=== PATIENT | female | born 1960 | race Caucasian/White ===

== ENCOUNTER 2023-10-21 08:07 | Outpatient (OUT) | payer BC, SELFPAY ==
--- NOTE | 2023-10-21 08:20 | XR_ITS ---
[address] [address] Patient Name: VERNELL SMITH MRN: [id number] date: 1960 Sex: F Assigned Patient Location: [facility] Current Patient Location: [facility] Accession/Order Number: [id number] Exam Date: 10/21/2023 08:32 Report Date: 10/21/2023 08:44 At the request of: DEACON HUMPHREYS Procedure: XR DEXA axial skeleton EXAMINATION: XR DEXA axial skeleton HISTORY: s/p compression fxs spine, osteopenia COMPARISON: DEXA bone densitometry 10/19/2021 TECHNIQUE: Dual-energy X-ray absorptiometry (DXA) was performed. FINDINGS: SPINE ANALYSIS: Average bone mineral density is 0.959 g/cm2. T-score (standard deviation relative to young adult mean): -1.8 . +3.1% change since prior study. HIP ANALYSIS: Lowest bone mineral density is within the right femoral neck, 0.789 g/cm2. T-score (standard deviation relative to young adult mean): -1.8 . +4.1% change since prior study. XR/XR DEXA axial skeleton IMPRESSION: World Abel Organization Classification: Osteopenia - Moderate Fracture Risk Electronically authenticated by: MERLINE MELENDREZ Date: 10/21/2023 08:44
== END 2023-10-21 08:08 | disposition home or self-care (01) ==
LOC: RAD 08:11
PROVIDERS: PCP Family Medicine; Visit Provider Family Medicine
DX: M85.80 Other specified disorders of bone density and structure, unspecified site (principal); M48.50XA Collapsed vertebra, not elsewhere classified, site unspecified, initial encounter for fracture
CPT/HCPCS: 77080

== ENCOUNTER 2024-11-26 13:47 | Outpatient (OUT) | payer OTHER, SELFPAY ==
--- NOTE | 2024-11-26 13:51 | MM_ITS ---
Patient Name: VERNELL SMITH MR#: [id number] : 1960 Exam Date: 11/26/2024 Ordering Doctor: MOLINA ROBLEDO . RADIOLOGY REPORT PROCEDURE: MM TOMOSYNTHESIS SCREENING BI COMPARISON: MG MAMM SCREEN JW W CAD, 01/15/2020. MG MAMM SCREEN JW W CAD, 04/07/2017. MG MAMM JW SCRN W CAD DIG, 02/20/2015. MAMMO JW SCREEN, 11/13/2008. INDICATIONS: Screening Calculator Name NCI Breast Cancer Risk Assessment Tool 5 Year Breast Cancer Risk 2.90% Lifetime Breast Cancer Risk 10.70% Personal Breast Cancer No Personal Ovarian Cancer No Treatments None Family Cancers Mother with breast cancer at age ~38; Mother with lung cancer at age ~72; Aunt-maternal with lung cancer at age ~70; Aunt-paternal with uterine cancer at age ~55. LOCATION: [facility] BREAST COMPOSITION: There are scattered areas of fibroglandular density. FINDINGS: DIAGNOSTIC CATEGORY 2--BENIGN FINDING: RIGHT BREAST: No significant suspicious finding. Scattered benign-appearing calcifications are present. Scattered benign-appearing nodules are present. No significant change has occurred. LEFT BREAST: No significant suspicious finding. Scattered benign-appearing calcifications are present. No significant change has occurred. RECOMMENDATIONS: ROUTINE MAMMOGRAM AND CLINICAL EVALUATION IN 12 MONTHS. PLEASE NOTE: A NORMAL MAMMOGRAM DOES NOT EXCLUDE THE POSSIBILITY OF BREAST CANCER. A CLINICALLY SUSPICIOUS PALPABLE LUMP SHOULD BE BIOPSIED. Dictated by: Pedrito Villafana M.D. on 11/26/2024 at 16:13 Approved by: Pedrito Villafana M.D. on 11/26/2024 at 16:16
== END 2024-11-26 13:48 | disposition home or self-care (01) ==
LOC: MAMMO 13:47
PROVIDERS: PCP Family Medicine; Visit Provider Nurse Practitioner
DX: Z12.31 Encounter for screening mammogram for malignant neoplasm of breast (principal); Z80.3 Family history of malignant neoplasm of breast; Z80.1 Family history of malignant neoplasm of trachea, bronchus and lung; Z80.8 Family history of malignant neoplasm of other organs or systems
CPT/HCPCS: 77063; 77067

== ENCOUNTER 2025-06-08 08:42 | Outpatient (OUT) | payer OTHER, SELFPAY ==
--- OUTSIDE RECORDS SUMMARY | 2025-06-08 08:50 | XMS_ITS | Encounter Summary ---
Author Organization [facility] Address [facility] [place] [address] Care Team Providers Care Lap Checker Name Role Phone Miquel Davidson MD Unavailable [phone] Miquel Davidson MD Primary Care Provider [phone] Source Comments In the event this information is protected by the Federal Confidentiality of Alcohol and Drug AbusePatient Records regulations: The Federal rules restrict any use of the information to criminally investigate or prosecute any alcohol or drug abuse patient.[facility] Encounter Details Date Type Department Care Team (Late st Contact Info) Description 02/27/2024 [place] [address] Provider, [facility] Medicare Coverage of Physical Exams Social History Tobacco Use Types Packs/Day Years Used Date Smoking Tobacco: Some Days Cigarettes Passive Smoke Exposure: Current Smokeless Tobacco: Never Alcohol Use Standard Drinks/Week Comments Not Currently 0 (1 standard drink = 0.6 oz pur e alcohol) 1-2 a month PHQ-2 Answer Date Recorded PHQ-2 score 2 10/18/2023 Area Deprivation Index Answer Date Zachariah rded National Score (1-100), lower number is lower ri sk 74 01/26/2023 State Score (1-10), lower number is lower risk N ot on file 01/26/2023 Data from: https://www.neighborhoodatlas.medicine.[facility]/. Last address used for calculation [address] 01/26/2023 Comments No Sex and Gender Information Value Date Recorded Sex Assigned at Not on file Legal Sex Female 12:27 PM EDT Gender Identity Not on file Sexual Orientation Not on file documented as of this encounter Plan of Treatment Upcoming Encounters Date Type Department Care Team (Late st Contact Info) Description 10/10/2025 2:00 PM EST Office Visit [facility] [address] [place] [address] 1 year follow up 10/10/2025 2:20 PM EST Visit (SP) Office Hematology/Oncology [address] [place] [address] Octaviano Walker MD [address] [place] [address] 1 year follow up documented as of this encounter Visit Diagnoses Not on filedocumented in this encounter Care Teams Lap Checker Relationship Specialty Start Date End Date Miquel Davidson MD [address] [place] [address] PCP - General Family Medicine 04/08/23 Miquel Davidson MD [address] [place] [address] Referring Family Medicine 04/04/23 documented as of this encounter
--- OUTSIDE RECORDS SUMMARY | 2025-06-08 08:50 | XMS_ITS | Clinical Summary ---
Author Organization [facility] Address [address] [place] [address] Care Team Providers Care Veterinarian Helper Name Role Phone Miquel Davidson MD Unavailable [phone] Miquel Davidson MD Primary Care Provider [phone] Allergies No known active allergies Medications cyclobenzaprine (FLEXERIL) 5 mg tablet Take 5 mg by mouth once daily. 1 Active albuterol HFA (PROVENTIL HFA, VENTOLIN HFA) 90 mcg/actuation inhaler Inhale 2 Puffs as instructed every 4 hours as needed. 3 Active rOPINIRole (REQUIP) 0.25 mg tablet Take 0.25 mg by mouth three times a day. 4 Active ALBUTEROL INHALATION Inhale as instructed as needed. Active Active Problems No known active problems Immunizations Immunization Administration Dates Next Due COVID-19 original vaccine, a ge 12+ yr, monovalent (Doximity - PURPLE TOP) 02/10/2021,01/19/2021 influenza (LAIV) vaccine, na felipe, unspecified formulation 10/19/2022,08/17/2021,09/28/2019,2018,08/10/2018,08/19/2016 zoster (RZV) vaccine, recomb inant (SHINGRIX) 10/19/2022 Family History Medical History Relation Comments Skin Cancer Father Breast Cancer Mother Diabetes Sister Skin Cancer Sister Relation Status Comments Father Mother Sister Social History Tobacco Use Types Packs/Day Years Used Date Smoking Tobacco: Some Days Cigarettes Passive Smoke Exposure: Current Smokeless Tobacco: Never Tobacco Cessation:Ready to Q uit: Not Asked; Counseling Given: Not Answered Alcohol Use Standard Drinks/Week Comments Not Currently 0 (1 standard drink = 0.6 oz pur e alcohol) 1-2 a month PHQ-2 Answer Date Recorded PHQ-2 score 2 10/17/2024 Area Deprivation Index Answer Date Zachariah rded National Score (1-100), lower number is lower ri sk 74 01/26/2023 State Score (1-10), lower number is lower risk N ot on file 01/26/2023 Data from: https://www.neighborhoodatlas.[facility]/. Last address used for calculation [address] 01/26/2023 Comments No Sex and Gender Information Value Date Recorded Sex Assigned at Not on file Legal Sex Female 12:27 PM EDT Gender Identity Not on file Sexual Orientation Not on file Last Filed Vital Signs Vital Sign Reading Time Taken Comments Blood Pressure 133/82 10/18/2024 2:18 PM EST Pulse 49 10/18/2024 2:18 PM EST Temperature 36.3 C (97.3 F) 10/18/2024 2:18 PM EST Respiratory Rate 16 10/18/2024 2:18 PM EST Oxygen Saturation 97% 10/18/2024 2:18 PM EST Inhaled Oxygen Concentration - - Weight 68.8 kg (151 lb 9.6 oz) 10/18/2024 2:18 P M EST Height 162.6 cm (5' 4.02 ) 10/18/2024 2:18 PM ES T Body Mass Index 26.01 10/18/2024 2:18 PM EST Plan of Treatment Upcoming Encounters Date Type Department Care Team (Late st Contact Info) Description 10/10/2025 2:00 PM EST Office Visit [facility] [address] [place] [address] [place] [address] 1 year follow up 10/10/2025 2:20 PM EST Visit (SP) Office Hematology/Oncology [address] [facility] [place] [address] Octaviano Walker MD [address] [place] [address] 1 year follow up Health Maintenance Due Date Last Done Comments Anxiety Screening 1977 Depression Screening 1977 Hepatitis C Screening 1977 DTaP,Tdap,Td Vaccine (1 - Tdap) [address] Colonography 02/27/2004 Cologuard (FIT-DNA) 02/27/2004 Colonoscopy 02/27/2004 Colorectal Cancer Screening 02/27/2004 Fecal Occult Blood 02/27/2004 Lipid Screening 02/27/2004 Sigmoidoscopy 02/27/2004 Bone Density Screening 02/27/2024 Advance Directive Discussion 10/31/2024 Influenza Vaccine (#1) 2025 , 10/19/2022, 08/17/2021, Additional history exists Diabetes Screening 10/18/2027 10/18/2024, 1 12/21/2022, 07/21/2023, Additional history exists RSV Vaccine (1 - 1-dose 75+ series) 2034 Pneumococcal Vaccine: 50+ Completed 08/02/2023 Shingrix Vaccine Completed 08/02/2023, 10/19/2022 Procedures Procedure Name Priority Date/Time Associated Diagnosis Comments COMPREHENSIVE METABOLIC PANEL Routine 10/18/2024 2:02 PM EST Splenomegaly Thrombocytopenia (HCC) from Last 3 Months or Most Recently Relevant to Health Maintenance Results * (ABNORMAL) COMP METABOLIC PANEL (10/18/2024 2:02 PM EST) Protein, Total 6.7 6.3 - 8.0 g/dL 10/18/2024 2:27 PM EST [facility] Albumin 4.5 3.9 - 4.9 g/dL 10/18/2024 2:27 PM EST [facility] Calcium, Total 9.5 8.5 - 10.2 mg/dL 10/18/2024 2:27 PM EST [facility] Bilirubin, Total 0.9 0.2 - 1.3 mg/dL 10/18/2024 2:27 PM EST [facility] Alkaline Phosphatase 63 34 - 123 U/L 10/18/2024 2:27 PM [facility] AST 19 13 - 35 U/L 10/18/2024 2:27 PM [facility] ALT 11 7 - 38 U/L 10/18/2024 2:27 PM [facility] Glucose 78 74 - 99 mg/dL 10/18/2024 2:27 PM [facility] Comment: The [place] Diabetes Association (ADA) provides guidance for cutoff values for fasting glucose and random glucose. The ADA defines fasting as no caloric intake for at least 8 hours. Fasting plasma glucose results between 100 to 125 mg/dL indicate increased risk for diabetes (prediabetes). Fasting plasma glucose results greater than or equal to 126 mg/dL meet the criteria for diagnosis of diabetes. In the absence of unequivocal hyperglycemia, results should be confirmed by repeat testing. In a patient with classic symptoms of hyperglycemia or hyperglycemic crisis, random plasma glucose results greater than or equal to 200 mg/dL meet the criteria for diagnosis of diabetes. Reference: Standards of Medical Care in Diabetes 2016, [place] Diabetes Association. Diabetes Care. 2016.39(Suppl 1). BUN 14 7 - 21 mg/dL 10/18/2024 2:27 PM [facility] Creatinine 0.75 0.58 - 0.96 mg/dL 10/18/2024 2:27 PM [facility] Sodium 141 136 - 144 mmol/L 10/18/2024 2:27 PM [facility] Potassium 5.1 3.7 - 5.1 mmol/L 10/18/2024 2:27 PM [facility] Chloride 106 98 - 107 mmol/L 10/18/2024 2:27 PM [facility] CO2 28 22 - 30 mmol/L 10/18/2024 2:27 PM [facility] Anion Gap 7(L) 8 - 15 mmol/L 10/18/2024 2:27 PM [facility] Estimated Glomerular Filtration Rate 88 >=60 mL/min/1.7 3m 10/18/2024 2:27 PM [facility] Comment:Estimated Glomerular Filtration Rate (eGFR) is calculated using the 2020 CKD-EPI creatinine equation. This equation utilizes serum creatinine, sex, and age as parameters. The creatinine assay has traceable calibration to isotope dilution- mass spectrometry. Refer to KDIGO guidelines for clinical interpretation. In patients with unstable renal function, e.g. those with acute kidney injury, the eGFR may not accurately reflect actual GFR. Blood BLOOD SPECIMEN / Unknown Venipuncture / Unknown 10/18/2024 2:02 PM EST 10/18/2024 2:02 PM EST us Octaviano Walker MD LABORATORY Final Result [facility] [address] [place] [address] from Last 3 Months or Most Recently Relevant to Health Maintenance Insurance [employer] Care Teams Veterinarian Helper Relationship Specialty Start Date End Date Miquel Davidson MD [address] [place] [address] PCP - General Family Medicine 04/08/23 Miquel Davidson MD [address] [place], [place] [id number] Referring Family Medicine 04/04/23
--- OUTSIDE RECORDS SUMMARY | 2025-06-08 08:50 | XMS_ITS | Encounter Summary ---
Author Organization [facility] Address [facility] [place] [address] Care Team Providers Care Immigration Law Specialist Name Role Phone Miquel Davidson MD Unavailable [phone] Miquel Davidson MD Primary Care Provider [phone] Source Comments In the event this information is protected by the Federal Confidentiality of Alcohol and Drug AbusePatient Records regulations: The Federal rules restrict any use of the information to criminally investigate or prosecute any alcohol or drug abuse patient.[facility] Encounter Details Date Type Department Care Team (Late st Contact Info) Description 02/18/2023 [place] [address] Provider, [facility] Actionable Imaging Result Notification Patient Outreach Social History Tobacco Use Types Packs/Day Years Used Date Smoking Tobacco: Some Days Cigarettes Smokeless Tobacco: Never Alcohol Use Standard Drinks/Week Comments Not Currently 0 (1 standard drink = 0.6 oz pur e alcohol) PHQ-2 Answer Date Recorded PHQ-2 score 2 02/16/2023 Area Deprivation Index Answer Date Zachariah rded National Score (1-100), lower number is lower ri sk 74 01/26/2023 State Score (1-10), lower number is lower risk N ot on file 01/26/2023 Data from: https://www.neighborhoodatlas.[facility]/. Last address used for calculation [address] 01/26/2023 Comments Unknown Sex and Gender Information Value Date Recorded Sex Assigned at Not on file Legal Sex Female 12:27 PM EDT Gender Identity Not on file Sexual Orientation Not on file documented as of this encounter Plan of Treatment Upcoming Encounters Date Type Department Care Team (Late st Contact Info) Description 10/10/2025 2:00 PM EST Office Visit [facility] [address] [place] [address] [place] [address] 1 year follow up 10/10/2025 2:20 PM EST Visit (SP) Office Hematology/Oncology [address] [place] [address] Octaviano Walker MD [address] [place] [address] 1 year follow up documented as of this encounter Visit Diagnoses Not on filedocumented in this encounter Care Teams Immigration Law Specialist Relationship Specialty Start Date End Date Miquel Davidson MD [address] [place] [address] PCP - General Family Medicine 04/08/23 Miquel Davidson MD [address] [place] [address] Referring Family Medicine 04/04/23 documented as of this encounter
--- OUTSIDE RECORDS SUMMARY | 2025-06-08 08:50 | XMS_ITS | CCD ---
Author Organization [facility] Care Team Providers Care Library Serials Assistant Name Role Phone ARGELIA, DR ZAIN Siddiqui Admitting Unavailable STOUT, DR ZAIN Siddiqui Attending Unavailable STOUT, DR ZAIN Siddiqui Consulting Unavailable STOUT, DR ZAIN Siddiqui Primary Care Unavailable STOUT, DR ZAIN Siddiqui Admitting Unavailable STOUT, DR ZAIN Siddiqui Attending Unavailable STOUT, DR ZAIN Siddiqui Consulting Unavailable STOUT, DR ZAIN Siddiqui Primary Care Unavailable STOUT, DR ZAIN Siddiqui Admitting Unavailable STOUT, DR ZAIN Siddiqui Attending Unavailable STOUT, DR ZAIN Siddiqui Consulting Unavailable STOUT, DR ZAIN Siddiqui Primary Care Unavailable BRYCE GARSIA Consulting Unavailable STOUT, DR ZAIN Siddiqui Primary Care Unavailable STOUT, DR ZANI Siddiqui Admitting Unavailable STOUT, DR ZAIN Siddiqui Attending Unavailable STOUT, DR ZAIN Siddiqui Consulting Unavailable ZIEBER, DR MERLINE Orozco Consulting Unavailable Unavailable Primary Care Provider UnavailDeacon Young MD Unavailable Deacon Humphreys MD Primary Care Provider Romero Anna Unavailable Romero Anna Attending Unavailable Romero Anna Admitting Unavailable Deacon Humphreys Primary Care Unavailable Kajal Blackmon Unavailable Unavailable Primary Care Provider UnavailDeacon Young Primary Care Physician [phone] Jasmin Cobian Attending Unavailable Deacon Humphreys Attending Unavailable Deacon Humphreys Attending Unavailable Deacon Humphreys Admitting Unavailable Deacon Humphreys Attending Unavailable Deacon Humphreys Attending Unavailable Deacon Humphreys Attending Unavailable Deacon Humphreys MD Primary Care Provider [phone] OCTAVIANO KRUEGER Referring Unavailable OCTAVIANO KRUEGER Attending Unavailable DEACON HUMPHREYS Primary Care Unavailable DEACON HUMPHREYS Primary Care Unavailable Deacon Humphreys Admitting Unavailable Deacon Humphreys Attending Unavailable Deacon Humphreys Referring Unavailable Deacon Humphreys Admitting Unavailable Deacon Humphreys Attending Unavailable Jasmin Cobian Admitting Unavailable Jasmin Cobian Attending Unavailable Deacon Humphreys Admitting Unavailable Deacon Humphreys Attending Unavailable Deacon Humphreys Admitting Unavailable Deacon Humphreys Attending Unavailable MEI, INSPECTOR BALANCE TRUING TOMEKA A Attending Unavailapril HURLEY, STEPHANI TOMEKA A Attending Unavailabl e Deacon Humphreys Attending Unavailable Abhyankar, Octaviano Admitting Unavailable Abhyankar, Octaviano Attending Unavailable Abhyankar, Octaviano Referring Unavailable Deacon Humphreys Attending Unavailable Deacon Humphreys Attending Unavailable Medications Current Medications Medication Drug Class(es) Dates Sig (Normalized) Sig (Original) [id number] 200 actuat albuterol 0.09 mg/actuat metered dose inhaler (15 sources) beta2-Adrenergic Agonist Start: 12-24-2022 take 2 puff(s) by inhalation every four hours as needed albuterol HFA (PROVENTIL HFA, VENTOLIN HFA) 90 mcg/actuation inhaler Inhale 2 Puffs as instructed every 4 hours as needed. 12/24/2022 Active ALBUTEROL INHALA TION Inhale as instructed as needed. Active take 1 puff(s) by in halation every four hours as needed Albuterol Sulfate HFA 108 (90 Base) MCG/ACT 1 puff as needed Inhalation every 4 hrs Active Comment on above: Inhale 2 Puffs as in structed every 4 hours as needed. Albuterol (Eqv-ProAir HFA) 90 mcg/inh inhalation aerosol (5 sources) Start: 03-23-20 take 2 puff(s) by inhalation every four hours as needed Albuterol (Eqv-ProAir HFA) 90 mcg/inh inhalation aerosol 2 puff(s), Inhalation, q4hr, Refill(s) 0, as needed Start Date: 03/23/23 Status: Ordered amoxicillin 500 mg oral capsule (1 source) Penicillin-class Antibacterial Start: 07-04-20 take 2 capsules by mouth twice daily Amoxicillin 500 MG 2 caps Orally Twice a day for 7 days Jul, Active atorvastatin 20 mg oral tablet (15 sources) HMG-CoA Reductase Inhibitor Start: 06-23-20 End: 10-18-20 take 1 tablet by mouth once daily at bedtime atorvastatin 20 mg Tab See Instructions, TAKE ONE TABLET BY MOUTH ONCE DAILY AT BEDTIME, # 90 EA, Refills(s) 0, Pharmacy: [facility], 162.6, cm, 11/21/23 7:35:00 EST, Height/Length Dosing, 73.4, kg, 11/21/23 7:35:00 EST, Weight Dosing Start Date: 03/19/24 Status: Ordered Comment on above: Take 20 mg by mouth once daily. rOPINIRole 0.25 mg oral tablet (4 sources) Nonergot Dopamine Agonist Start: 10-01-20 take 1 tablet by mouth three times daily rOPINIRole (REQUIP) 0.25 mg tablet Take 0.25 mg by mouth three times a day. 10/01/2024 Active Start: 10-01-2024 take 1 tablet by shahnaz th once daily at bedtime ropinirole 0.25 mg Tab 0.25 mg = 1 tab(s), Oral, Daily, 1 to 3 hours before bedtime, # 90 tab(s), Refills(s) 0, Pharmacy: [facility], 162.5, cm, 10/01/24 11:55:00 EST, Height/Length Dosing, 68.9, kg, 10/01/24 11:55:00 EST, Weight Dosing Start Date: 10/01/24 Status: Ordered Completed/Discontinued Medications Medication Drug Class(es) Dates Sig (Normalized) Sig (Original) alendronic acid 35 mg oral tablet (3 sources) Bisphosphonate Start: 11-21-2023 take 6-8 [oz_av] by mouth once daily alendronate 35 mg Tab 35 mg = 1 tab(s), Oral, q7day, with 6-8 oz plain water, at least 30 minutes before first food, beverage, or medication of the day, # 12 tab(s), Refills(s) 0, Pharmacy: [facility], 162.6, cm, 11/21/23 7:35:00 EST, Height/Length Dosing, 73.4, kg, 11/21/23 7:35:00 EST, Weight Dosing Start Date: 11/21/23 Status: Ordered cyclobenzaprine hydrochloride 5 mg oral tablet (17 sources) Muscle Relaxant Start: 11-21-2023 take 1 tablet by mouth three times daily as needed cyclobenzaprine 5 mg Tab 5 mg = 1 tab(s), Oral, TID, PRN Spasm, TAKE ONE TABLET BY MOUTH THREE TIMES A DAY FOR 30 DAYS, # 90 tab(s), Refills(s) 0, Pharmacy: [facility], 162.6, cm, 11/21/23 7:35:00 EST, Height/Length Dosing, 73.4, kg, 11/21/23 7:35:00 EST, Weight Dosing Start Date: 11/21/23 Status: Ordered Start: 09-01-2021 take 1 tablet by shahnaz th once daily cyclobenzaprine (FLEXERIL) 5 mg tablet Take 5 mg by mouth once daily. 09/01/2021 Active Comment on above: Take 5 mg by mouth o nce daily. Problems Active Problems Problem Classification Problem Date Documented Da te Episodic/Chronic Disorders of lipid metabolism (11 sources) Pure hypercholesterolemia, unspecified; Translations: [Hypercholesterolemia] Onset: 3 06-23-2021 Chronic Diverticulosis and diverticulitis (7 sources) Diverticulosis of sigmoid colon; Translations: [Sigmoid diverticulosis] 03-22-2023 Chronic Esophageal disorders (5 sources) Gastroesophageal reflux disease 03-22-2023 Chronic Other and unspecified benign neoplasm (2 sources) History of polyp of colon; Translations: [Personal history of colonic polyps] Episodic Other and unspecified benign neoplasm (2 sources) Benign polyp of colon; Translations: [Colon polyp, hyperplastic] Episodic Other bone disease and musculoskeletal deformities (5 sources) Osteopenia 03-22-2023 Episodic Other connective tissue disease (5 sources) Cramp in lower limb 09-04-2024 Episodic Other gastrointestinal disorders (5 sources) Irritable bowel syndrome 03-22-2023 Chronic Other gastrointestinal disorders (3 sources) Splenomegaly; Translations: [Splenomegaly, not elsewhere classified] Episodic Other nutritional; endocrine; and metabolic disorders (4 sources) Metabolic syndrome; Translations: [METABOLIC SYNDROME] Onset: 3 Chronic Other nutritional; endocrine; and metabolic disorders (5 sources) Metabolic syndrome X 03-22-2023 Chronic Other upper respiratory infections (1 source) Acute upper respiratory infection, unspecified Episodic Otitis media and related conditions (1 source) Otitis media, unspecified, right ear Episodic Pathological fracture (1 source) Personal history of (healed) other pathological fracture; Translations: [PERS HX HEALED OTH PATHOLOGICAL FX] Onset: 3 Episodic Spondylosis; intervertebral disc disorders; other back problems (8 sources) Lumbar radiculopathy; Translations: [Radiculopathy, lumbar region] Episodic Substance-related disorders (5 sources) Smoker 06-05-2021 Chronic Comment on above: Added secondary to d ocumentation in Social History. Unclassified (1 source) LOW BACK PAIN, UNSPECIFIED; Translations: [LOW BACK PAIN, UNSPECIFIED] Onset: 3 Unclassified (3 sources) COUGH, UNSPECIFIED; Translations: [COUGH, UNSPECIFIED] Onset: 2 Unclassified (1 source) Infectious mononucleosis, unspecified without complication; Translations: [Infectious mononucleosis, unspecified without complication] Onset: 3 Unclassified (2 sources) Cancer cervix screening status 09-18-2024 Unclassified (4 sources) Patient encounter status 09-18-2024 Viral infection (3 sources) Gareth-Gottlieb virus disease; Translations: [Infectious mononucleosis, unspecified without complication] Episodic Viral infection (5 sources) Disease caused by 2019-nCoV 11-21-2023 Past or Other Problems Problem Classification Problem Date Documented Da te Episodic/Chronic Other lower respiratory disease (1 source) Shortness of breath; Translations: [SHORTNESS OF BREATH] Onset: 04-22-2022 Episodic Other screening for suspected conditions (not mental disorders or infectious disease) (4 sources) Encounter for screening for malignant neoplasm of cervix; Translations: [ENC SCREENING MALIG NEOPLASM CERV] Onset: 11-25-2021 Episodic Unclassified (1 source) COUGH, UNSPECIFIED; Translations: [COUGH, UNSPECIFIED] Onset: 04-20-2022 Results Test Name Value Interpretation Reference Range Facility Ambulatory Visit Summaryon 0 05-23-2025 Ambulatory Visit Summary Ambulatory Visit Summary HARMONY CASILLAS :1960 Visit Date:05/23/2025 Ambulatory Visit Instructions Your Diagnosis Abscess of buttock, right BMI 24.0-24.9, adult Smoker Your Care Team Attending Physician - TOMEKA HURLEY CNP Primary Care Physician - Deacon Humphreys MD This Is Your Medications List albuterol (Albuterol (Eqv-ProAir HFA) 90 mcg/inh inhalation aerosol) cephalexin (Keflex 500 mg Cap) cyclobenzaprine (cyclobenzaprine 5 mg Tab) ropinirole (ropinirole 0.5 mg Tab) Procedures Performed Colonoscopy (2019). Discharge Vitals Temperature (Oral) 36.8 ???C Heart Rate (Peripheral) 88 Respiratory Rate 18 Blood Pressure 122/82 Height 162.5 cm Height 64 in Weight 65.9 kg Weight 145.284 lb BMI 24.96 What to do next Scheduled Follow-Up Appointments 2024 8:40 AM EDT With: TOMEKA HURLEY CNP Where: [address] [phone]- 2024 1:40 PM EDT With: Deacon Humphreys MD Where: [place] [id number] You Need to Schedule the Following Appointments Follow Up with TOMEKA HURLEY CNP, FAM When: Within 2 weeks Comments: Abscess of buttocks Where: [address] [place], [place] [phone] Business (1) Medications What How Much When Why Instructions New cephalexin (Keflex 500 mg Cap) 1 Capsules By Mouth 4 times a day Abscess of buttock, right Duration: 10 Days Pickup at [facility] Unchanged albuterol (Albuterol (Eqv-ProAir HFA) 90 mcg/ inh inhalation aerosol) 2 Puffs Inhalation Every 4 hours as needed Unchanged cyclobenzaprine (cyclobenzaprine 5 mg Tab) 1 Tablets By Mouth 3 times a day as needed for Spasm TAKE ONE TABLET BY MOUTH THREE TIMES A DAY FOR 30 DAYS Unchanged ropinirole (ropinirole 0.5 mg Tab) 1 Tablets By Mouth Every day 1 to 3 hours before bedtime Pharmacy Information [facility] [id number]: [address], [place] [phone] Allergies No Known Allergies Problems Ongoing - Any problem that you are currently receiving treatment for. Back pain BMI 24.0-24.9, adult Diverticulitis GERD (gastroesophageal reflux disease) Hyperlipidemia IBS (irritable bowel syndrome) Leg cramping Metabolic syndrome Osteopenia Smoker Well woman exam Patient Survey You may receive a survey via text or e-mail asking about your office visit. Please share your experience with us by completing your survey. We appreciate your feedback and thank you for choosing us for your care. Patient Portal You may access all of your results and other medical record information on our secure patient portal. If you are not signed up for this yet, please contact [employer] at [phone] to get signed up today. Language Information Language assistance services are available as needed. Normal [facility] Family Medicine Office/Clini c Noteon 05-23-2025 Family Medicine Office/Clinic Note Family Medicine Office/Clinic Note Chief Complaint Acute Visit The patient reports discomfort and a lump in the rectal area. HPI Staff Former Dr Stuart alanis. Presents today for acute visit. Has lump on buttocks, near rectum. Tender to touch. First noticed 2 wks ago. Last night discovered swelling of vaginal area as well. Denies difficulty using restroom. Has been having increased bowel movements, softer, but not diarrhea. Last PAP 09/18/24 I have reviewed and verified the staff HPI to be accurate for this encounter. History of Present Illness 65-year-old female presenting with discomfort in the rectal area and a lump near the perianal region. The discomfort began a couple of weeks ago, initially presenting as redness, which was confirmed by her daughter. The patient attempted self-treatment with Neosporin, bag balm, and witch aliya, but these interventions were ineffective. Upon further inspection during a shower, the patient noticed a lump near the rectal area, which was later identified as a tender abscess during the examination. The patient also reported swelling in the vaginal area, although no significant edema was observed during the examination. Review of Systems PHQ Score Initial Depression Screen Score: 0 SCORE - Dermatological: Reports discomfort and redness in the rectal area. - Genitourinary: Reports swelling in the vaginal area. Physical Exam Vitals & Measurements T: 36.8 ???C(Oral) HR: 88(Peripheral) RR: 18 BP: 122/82 SpO2: 99% HT: 64 in HT: 162.5 cm WT: 145.284 lb WT: 65.9 kg BMI: 24.96 General: alert, no acute distress Skin: warm, dryNoted a tender abscess in the perianal area. Head: no trauma, normocephalic Neck: Trachea midline, no adenopathy, no tenderness Eye: normal conjunctiva, sclera clear Cardiovascular: regular rate and rhythm, normal peripheral perfusion Respiratory: Lungs CTA, respirations non labored Genitourinary: No significant edema or swelling observed in the vaginal area. Extremities: no deformity, no trauma Neurological: oriented x 4, LOC appropriate for age speech normal Assessment/Plan 1. Abscess of buttock, right (L02.31: Cutaneous abscess of buttock) - Warm compresses recommended to facilitate drainage. - Prescribed Keflex (cephalexin) 500 mg four times daily for 10 days. - Follow-up appointment advised in two weeks to reassess the condition. Ordered: cephalexin, 500 mg = 1 cap(s), Oral, QID, X 10 day(s), # 40 cap(s), Refills(s) 0, Pharmacy: [facility], 162.5, cm, 05/23/25 7:42:00 EDT, Height/Length Dosing, 65.9, kg, 05/23/25 7:42:00 EDT, Weight Dosing 2. BMI 24.0-24.9, adult (Z68.24: Body mass index [BMI] 24.0-24.9, adult) BMI 24.96 3. Smoker (F17.200: Nicotine dependence, unspecified, uncomplicated) The standard range for ages 18 and older is >=18.5 and < 25 kg/m2. Your BMI today was above this range, this falls in the overweight to obese category and there are medical benefits to weight loss. We can offer counselling, referral, and/or medical support in addressing this problem. Your BMI and weight management will be followed at subsequent visits. Follow-up With When Contact Information TOMEKA HURLEY CNP, FAM Within [address] [place] [phone] Business (1) Additional Instructions: Abscess of buttocks Patient Education Skin Abscess, [id number] Problem List/Past Medical History Ongoing Back pain BMI 24.0-24.9, adult Diverticulitis GERD (gastroesophageal reflux disease) Hyperlipidemia IBS (irritable bowel syndrome) Leg cramping Metabolic syndrome Osteopenia Smoker Well woman exam Historical No qualifying data Procedure/Surgical History Colonoscopy (2019). Medications Albuterol (Eqv-ProAir HFA) 90 mcg/inh inhalation aerosol, 180 mcg= 2 puff(s), Inhalation, q4hr, 1 refills cyclobenzaprine 5 mg Tab, 5 mg= 1 tab(s), Oral, TID, PRN Keflex 500 mg Cap, 500 mg= 1 cap(s), Oral, QID ropinirole 0.5 mg Tab, 0.5 mg= 1 tab(s), Oral, Daily, 1 refills Allergies No Known Allergies Social History Alcohol Never., 09/18/2024 Substance Abuse Never., 09/04/2024 Tobacco - High Risk, 09/01/2021 4 or less cigarettes(less than 1/4 pack)/day in last 30 days Tobacco Use:. Never Smokeless Tobacco Use:. Cigarettes, Household tobacco concerns: No. Yes, 05/23/2025 Family History Diabetes mellitus type 1: Uncle. Diabetes mellitus type 2: Sister. Heart disease: Aunt and Grandparent. Primary malignant neoplasm of female breast: Mother. Primary malignant neoplasm of female genital organ: Mother. Primary malignant neoplasm of skin: Father, Sister and Sister. Immunizations Vaccine Date Status zoster vaccine, inactivated 08/02/2023 Given zoster vaccine, inactivated 08/02/2023 Recorded pneumococcal 20-valent conjugate vaccine 08/02/2023 Recorded influenza virus vaccine, inactivated 08/02/2023 Recorded zoster vaccine, inactivated 10/19/2022 Recorded influ (more content not included)... Normal [facility] Comment on above: Result Comment: Elec tronically Signed By: TOMEKA HURLEY CNP\.marques\Date and Time Signed: 05/23/25 08:28 EDT Ambulatory Visit Summaryon 0 02-07-2025 Ambulatory Visit Summary Ambulatory Visit Summary HARMONY CASILLAS :1960 Visit Date:02/07/2025 Ambulatory Visit Instructions Your Diagnosis Back pain GERD (gastroesophageal reflux disease) Hyperlipidemia Leg cramping BMI 26.0-26.9,adult Overweight (BMI 25.0-29.9) Smoker Your Care Team Attending Physician - Deacon Humphreys MD Primary Care Physician - Deacon Humphreys MD This Is Your Medications List albuterol (Albuterol (Eqv-ProAir HFA) 90 mcg/inh inhalation aerosol) cyclobenzaprine (cyclobenzaprine 5 mg Tab) ropinirole (ropinirole 0.5 mg Tab) Procedures Performed Colonoscopy (2019). Discharge Vitals Temperature (Tympanic) 36.8 ???C Heart Rate (Peripheral) 76 Respiratory Rate 18 Blood Pressure 126/80 Height 162.5 cm Height 64 in Weight 69.4 kg Weight 153.001 lb BMI 26.28 What to do next Scheduled Follow-Up Appointments 2024 1:40 PM EDT With: Deacon Humphreys MD Where: [place] [phone]- Medications What How Much When Instructions Unchanged albuterol (Albuterol (Eqv-ProAir HFA) 90 mcg/ inh inhalation aerosol) 2 Puffs Inhalation Every 4 hours as needed Unchanged cyclobenzaprine (cyclobenzaprine 5 mg Tab) 1 Tablets By Mouth 3 times a day as needed for Spasm TAKE ONE TABLET BY MOUTH THREE TIMES A DAY FOR 30 DAYS Unchanged ropinirole (ropinirole 0.5 mg Tab) 1 Tablets By Mouth Every day 1 to 3 hours before bedtime Allergies No Known Allergies Problems Ongoing - Any problem that you are currently receiving treatment for. Back pain BMI 26.0-26.9,adult Diverticulitis GERD (gastroesophageal reflux disease) Hyperlipidemia IBS (irritable bowel syndrome) Leg cramping Metabolic syndrome Osteopenia Overweight (BMI 25.0-29.9) Smoker Well woman exam Patient Survey You may receive a survey via text or e-mail asking about your office visit. Please share your experience with us by completing your survey. We appreciate your feedback and thank you for choosing us for your care. Normal [facility] Family Medicine Office/Clini c Noteon 02-07-2025 Family Medicine Office/Clinic Note Family Medicine Office/Clinic Note Chief Complaint 3m follow up The patient complains of leg cramping and back pain. HPI Staff 3m follow up Ropinirole increased at [facility] w/Jasmin due to leg cramping & swelling. Has improved. NEG Mammogram 11/26/24 Does need refill of all meds. Insurance requiring 90 day supply. History of Present Illness The patient is a 64-year-old female presenting with leg cramping, back pain, and upper respiratory symptoms. She experienced leg cramping improvement following an increase in ropinirole dosage, and it was noted that restless leg syndrome might benefit from iron supplementation. Recent factors influencing her back pain included physically straining activities performed at home. Relief measures included using a massage chair and medication. Additionally, she experienced a persistent cough and sore throat indicative of upper respiratory involvement, which are currently resolving. - Discussed adherence to preventive screenings: mammogram recently completed. - Suggested [id number] iron supplementation for management of restless leg syndrome. - Encouraged medication supply management as advised by insurance for cost-effectiveness. Review of Systems PHQ Score Initial Depression Screen Score: 2 SCORE Physical Exam Vitals & Measurements T: 36.8 ???C(Tympanic) HR: 76(Peripheral) RR: 18 BP: 126/80 SpO2: 98% HT: 64 in HT: 162.5 cm WT: 153.001 lb WT: 69.4 kg BMI: 26.28 General: alert, no acute distress ENMT: oral mucosa moist Cardiovascular: Regular rate and rhythm, normal peripheral perfusion Respiratory: Lungs clear to auscultation, respirations non labored Extremities: no deformity, no trauma Neurological: oriented x 4, level of consciousness appropriate for age, CN II-XII intact, motor strength equal & normal bilaterally, speech normal Abdomen: Soft, Non-tender, Non-distended, + Bowel sounds Assessment/Plan 1. Back pain (M54.9: Dorsalgia, unspecified) Episodes correspond with physical overexertion. Suggested relief measures include use of massage chair and Flexeril, with patient encouraged to moderate activities. 2. GERD (gastroesophageal reflux disease) (K21.9: Gastro-esophageal reflux disease without esophagitis) No issues at this time 3. Hyperlipidemia (E78.5: Hyperlipidemia, unspecified) Labs look good 4. Leg cramping (R25.2: Cramp and spasm) Improvement noted with increased ropinirole dosage. Consideration of iron pills recommended for any residual symptoms, with patient consent obtained for trial of supplementation. 5. BMI 26.0-26.9,adult (Z68.26: Body mass index [BMI] 26.0-26.9, adult) BMI education added 6. Overweight (BMI 25.0-29.9) (E66.3: Overweight) Diet and exercise advised. 7. Smoker (F17.200: Nicotine dependence, unspecified, uncomplicated) Active smoking noted; advised monitoring for symptom exacerbation linked to smoking. Suggested general benefits in smoking cessation for health support. Orders: cyclobenzaprine, 5 mg = 1 tab(s), Oral, TID, PRN Spasm, TAKE ONE TABLET BY MOUTH THREE TIMES A DAY FOR 30 DAYS, # 90 tab(s), Refills(s) 0, Pharmacy: [facility], 162.5, cm, 02/07/25 9:47:00 EDT, Height/Length Dosing, 69.4, kg, 02/07/25 9:47:00 EDT, Weight Dosing ropinirole, 0.5 mg = 1 tab(s), Oral, Daily, 1 to 3 hours before bedtime, # 90 tab(s), Refills(s) 1, Pharmacy: [facility], 162.5, cm, 02/07/25 9:47:00 EDT, Height/Length Dosing, 69.4, kg, 02/07/25 9:47:00 EDT, Weight Dosing 64-year-old female with a history of leg cramping and back pain, who presents with these symptoms and resolving upper respiratory signs. Her leg cramps have responded to increased ropinirole doses. Back pain was exacerbated by physical tasks, and symptoms were mitigated by at-home interventions. Upper respiratory symptoms of coughing and sore throat have diminished, aligning with viral infection recovery. Upper Respiratory Symptoms Symptoms of cough and sore throat resolving, consistent with viral etiology. No further intervention required as condition improves. I extensively discussed with the patient her diagnoses, including leg cramping, back pain, and recent upper respiratory symptoms. For leg cramping, we considered adjusting her current ropinirole, and I recommended an [id number] iron supplement to potentially alleviate symptoms further. I reviewed her back pain recurrence associated with strenuous activity and advised continued home-based therapies to manage discomfort. Her upper respiratory symptoms are resolving spontaneously, pointing towards a typical viral infection recovery. Despite active smoking, I reinforced the health benefits of cessation. We also touched on her medication supply requirement and adherence strategies to ensure cost-effective management under her insurance plan. Follow-up No qualifying data available Problem List/Past Medical History Ongoing Back pain BMI 26.0-26.9,adult Diverticulitis GERD (gastroesophageal reflux disease (more content not included)... Normal [facility] Comment on above: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 Ambulatory Visit Summary Ambulatory Visit Summary HARMONY CASILLAS :1960 Visit Date:10/01/2024 Ambulatory Visit Instructions Your Diagnosis Leg cramping BMI 26.0-26.9,adult Over weight Smoker Back pain Hyperlipidemia Your Care Team Attending Physician - Deacon Humphreys MD Primary Care Physician - Deacon Humphreys MD This Is Your Medications List albuterol (Albuterol (Eqv-ProAir HFA) 90 mcg/inh inhalation aerosol) atorvastatin (atorvastatin 20 mg Tab) cyclobenzaprine (cyclobenzaprine 5 mg Tab) Procedures Performed Colonoscopy (2019). Discharge Vitals Temperature (Temporal Artery) 36.8 ???C Heart Rate (Peripheral) 66 Respiratory Rate 16 Blood Pressure 120/74 Height 162.5 cm Height 64 in Weight 68.9 kg Weight 151.898 lb BMI 26.09 What to do next Scheduled Follow-Up Appointments 2024 8:30 AM EST With: Deacon Humphreys MD Where: [facility] [address] [place] [place] [address]- Medications What How Much When Instructions Unchanged albuterol (Albuterol (Eqv-ProAir HFA) 90 mcg/ inh inhalation aerosol) 2 Puffs Inhalation Every 4 hours as needed Unchanged atorvastatin (atorvastatin 20 mg Tab) See instructions TAKE ONE TABLET BY MOUTH ONCE DAILY AT BEDTIME Unchanged cyclobenzaprine (cyclobenzaprine 5 mg Tab) 1 Tablets By Mouth 3 times a day as needed for Spasm TAKE ONE TABLET BY MOUTH THREE TIMES A DAY FOR 30 DAYS Allergies No Known Allergies Problems Ongoing - Any problem that you are currently receiving treatment for. Back pain Breast cancer screening by mammogram Cervical cancer screening COVID-19 Diverticulitis GERD (gastroesophageal reflux disease) High cholesterol Hyperlipidemia IBS (irritable bowel syndrome) Leg cramping Metabolic syndrome Osteopenia Smoker Well woman exam Patient Survey You may receive a survey via text or e-mail asking about your office visit. Please share your experience with us by completing your survey. We appreciate your feedback and thank you for choosing us for your care. Normal [facility] Family Medicine Office/Clini c Noteon 10-01-2024 Family Medicine Office/Clinic Note Family Medicine Office/Clinic Note Chief Complaint The patient complains of leg cramping, primarily occurring in the morning upon waking. HPI Staff Harmony is a 64 year old female presenting for recheck on her leg cramps AMW today Not every night with the leg cramps but going on for 7-8 months and getting worse more recently questions/concerns: needs her inhaler, atorvastatin and cyclobenzaprine refilled History of Present Illness The patient is a 64-year-old female presenting with leg cramping. The patient reports that the cramping is most bothersome in the morning upon waking, and occasionally during the night. These cramps can also occur while performing activities such as working in the kitchen, although this is less frequent. She has previously undergone an ultrasound, which was mostly normal with slight narrowing noted, yet she did not recall the details. The patient has been taking magnesium every other night and uses various creams for relief. The patient also occasionally utilizes Flexeril for her back discomfort after standing for prolonged periods. She is interested in trying ropinirole as a treatment option for her symptoms. Review of Systems PHQ Score Initial Depression Screen Score: 1 SCORE - Musculoskeletal: Reports leg cramps primarily in the morning and occasionally during the night, and less frequently during daily activities. Physical Exam Vitals & Measurements T: 36.8 ???C(Temporal Artery) HR: 66(Peripheral) RR: 16 BP: 120/74 SpO2: 98% HT: 64 in HT: 162.5 cm WT: 68.9 kg WT: 151.898 lb BMI: 26.09 Assessment/Plan 1. Leg cramping (R25.2: Cramp and spasm) The patient reports experiencing leg cramps, especially in the morning and occasionally at night. Current management includes magnesium supplementation, and the patient occasionally uses Flexeril for her back pain. It was proposed to trial ropinirole, starting at a low dose, 30 minutes before bed, as it is indicated for similar symptoms such as those of restless leg syndrome. The recommendation was made to withhold taking Flexeril initially to avoid excessive sedation. Follow-up will be scheduled to assess the efficacy of ropinirole in managing symptoms. Ordered: ropinirole, 0.25 mg = 1 tab(s), Oral, Daily, 1 to 3 hours before bedtime, # 90 tab(s), Refills(s) 0, Pharmacy: [facility], 162.5, cm, 10/01/24 11:55:00 EST, Height/Length Dosing, 68.9, kg, 10/01/24 11:55:00 EST, Weight Dosing 2. BMI 26.0-26.9,adult (Z68.26: Body mass index [BMI] 26.0-26.9, adult) BMI education added Ordered: ropinirole, 0.25 mg = 1 tab(s), Oral, Daily, 1 to 3 hours before bedtime, # 90 tab(s), Refills(s) 0, Pharmacy: [facility], 162.5, cm, 10/01/24 11:55:00 EST, Height/Length Dosing, 68.9, kg, 10/01/24 11:55:00 EST, Weight Dosing 3. Over weight (E66.3: Overweight) Diet and exercise advised Ordered: ropinirole, 0.25 mg = 1 tab(s), Oral, Daily, 1 to 3 hours before bedtime, # 90 tab(s), Refills(s) 0, Pharmacy: [facility], 162.5, cm, 10/01/24 11:55:00 EST, Height/Length Dosing, 68.9, kg, 10/01/24 11:55:00 EST, Weight Dosing 4. Smoker (F17.200: Nicotine dependence, unspecified, uncomplicated) Please stop smoking. Ordered: ropinirole, 0.25 mg = 1 tab(s), Oral, Daily, 1 to 3 hours before bedtime, # 90 tab(s), Refills(s) 0, Pharmacy: [facility], 162.5, cm, 10/01/24 11:55:00 EST, Height/Length Dosing, 68.9, kg, 10/01/24 11:55:00 EST, Weight Dosing 5. Back pain (M54.9: Dorsalgia, unspecified) Back pain management includes occasional use of Flexeril when discomfort occurs from prolonged standing. The association of back discomfort with leg cramps was not primarily discussed. Continued monitoring and the current use of muscle relaxants as needed are advised. Further investigation or referral may be considered if symptoms persist or worsen. Ordered: ropinirole, 0.25 mg = 1 tab(s), Oral, Daily, 1 to 3 hours before bedtime, # 90 tab(s), Refills(s) 0, Pharmacy: [facility], 162.5, cm, 10/01/24 11:55:00 EST, Height/Length Dosing, 68.9, kg, 10/01/24 11:55:00 EST, Weight Dosing 6. Hyperlipidemia (E78.5: Hyperlipidemia, unspecified) Could be the cause of the leg cramps. Will advised the patient to stop the statin first and then try the others. Ordered: ropinirole, 0.25 mg = 1 tab(s), Oral, Daily, 1 to 3 hours before bedtime, # 90 tab(s), Refills(s) 0, Pharmacy: [facility], 162.5, cm, 10/01/24 11:55:00 EST, Height/Length Dosing, 68.9, kg, 10/01/24 11:55:00 EST, Weight Dosing PVRs reviewed and WNL. Follow-up No qualifying data available Problem List/Past Medical History Ongoing Back pain Breast cancer screening by mammogram Cervical cancer screening COVID-19 Diverticulitis GERD (gastroesophageal reflux disease) High cholesterol Hyperlipidemia IBS (irritable bowel syndrome) Leg cramping Metabolic syndrome Osteopenia Smoker Well woman exam Historical No qualifying data Procedure/Surgical History (more content not included)... Normal [facility] Comment on above: Result Comment: Elec tronically Signed By: Stuart WISEMAN, Deacon Moise\Date and Time Signed: 10/01/24 12:14 EST PAP [id number] 09-25-2024 Cytology report Cyto stain Doc (Cvx/Vag) Note Invalid Interpretation Code [facility] Comment on above: Result Comment: TEST S RESULT FLAG UNITS REF RANGE LAB Clinician Provided Cytology Information Source.............[facility] No. of containers..01 ThinPrep Vial DIAGNOSIS: 01 NEGATIVE FOR INTRAEPITHELIAL LESION OR MALIGNANCY. CELLULAR CHANGES ASSOCIATED WITH INFLAMMATION ARE PRESENT. SHIFT IN GARRET SUGGESTIVE OF BACTERIAL VAGINOSIS. Specimen adequacy: 01 Satisfactory for evaluation. Endocervical and/or squamous metaplastic cells (endocervical component) are present. Areas of partially obscuring inflammatory exudate are present. Performed by: Amadou Arriaga, Client Support Manager ([facility]) . 01 Note: Note 02 The Pap smear is a screening test designed to aid in the detection of premalignant and malignant conditions of the uterine cervix. It is not a diagnostic procedure and should not be used as the sole means of detecting cervical cancer. Both false-positive and false-negative reports do occur. Test Methodology: Note 02 This liquid based ThinPrep(R) pap test was screened with the use of an image guided system. HPV Genotype Reflex Note 01 Criteria not met, HPV Genotype not performed. FLAG LEGEND: L-Low Normal,H-High Normal,LL-Alert Low,HH-Alert High <-Panic Low,>-Panic High,A-Abnormal,AA-Critical Abnormal Performed at: [address] [place] [address] Vidal Young PhD, [address] [address] Melinda Fuentes MD, Performed By: #### 1 [id number] #### [facility] [address] [place] [address] HPV 16+18+31+33+35+39+45+ 51+52+56+58+59+66+68 DNA Probe+sig amp Ql (Cvx) Negative Invalid Interpretation Code Negative [facility] Comment on above: Result Comment: This nucleic acid amplification test detects fourteen high-risk HPV types (16,18,31,33,35,39,45,51,52,56,58,59,66,68) without differentiation. Performed at: [address] [place] [id number] PhD Hector Drake Performed at: =[address] [id number] MD Gina Lawrence Performed By: #### 1 [id number] #### [facility] [address] [place] [address] US PVR Lower EXT Complete Bi laton 09-19-2024 US PVR Lower EXT Complete Bilat Exam Date/Time: 09/17/2024 14:25 EST Reason for Exam: R25.2;Claudication Report IMPRESSION: NO EVIDENCE OF SIGNIFICANT ARTERIAL STENOTIC DISEASE INVOLVING THE RIGHT AND LEFT LEGS ACCORDING TO ANKLE BRACHIAL INDICES. CLINICAL HISTORY: Claudication, R25.2. COMMENT: On the right, the brachial systolic pressure is 112 , the high thigh pressure is 163 , the low thigh pressure is 143 , the calf pressure is 148 , the posterior tibial ankle pressure is 141 , the dorsalis pedis ankle pressure is 129 , and the digit pressure is 104 . The high thigh-brachial index is 1.42, with normal 1.0 or greater. The ankle-brachial index at the posterior tibial artery is 1.23 and at the dorsalis pedis is 1.12, with normal 1.0 or greater. The toe-brachial index is 0.90, with normal 0.7 or greater. The plethysmography waveforms are mildly abnormal. On the left, the brachial systolic pressure is 115 , the high thigh pressure is 156 , the low thigh pressure is 141 , the calf pressure is 129 , the posterior tibial ankle pressure is 150 , the dorsalis pedis ankle pressure is 130 , and the digit pressure is 106 . The high thigh-brachial index is 1.36, with normal 1.0 or greater. The ankle-brachial index at the posterior tibial artery is 1.30 and at the dorsalis pedis is 1.13, with normal 1.0 or greater. The toe-brachial index is 0.92, with normal 0.7 or greater. The plethysmography waveforms are mildly abnormal. Ordering Provider: Deacon Humphreys FINAL REPORT Dictated: 09/19/2024 3:23 pm Aníbal Hogue MD. Signed (Electronic Signature): 09/19/2024 3:23 pm Signed by: Aníbal Hogue MD Transcribed by: ANNIKA Technologist: LEANNE Ame[facility]ua [facility] Ambulatory Visit Summaryon 1 11-18-2023 Ambulatory Visit Summary Ambulatory Visit Summary HARMONY CASILLAS :1960 Visit Date:09/18/2024 Ambulatory Visit Instructions Your Diagnosis Well woman exam Cervical cancer screening Smoker BMI 25.0-25.9,adult Overweight (BMI 25.0-29.9) Your Care Team Attending Physician - Jasmin Mathew Primary Care Physician - Deacon Humphreys MD This Is Your Medications List albuterol (Albuterol (Eqv-ProAir HFA) 90 mcg/inh inhalation aerosol) atorvastatin (atorvastatin 20 mg Tab) cyclobenzaprine (cyclobenzaprine 5 mg Tab) Procedures Performed Colonoscopy (2019). Discharge Vitals Temperature (Oral) 35.8 ???C Heart Rate (Peripheral) 78 Respiratory Rate 16 Blood Pressure 122/84 Height 162.5 cm Height 64 in Weight 66.90 kg Weight 147.489 lb BMI 25.33 What to do next Scheduled Follow-Up Appointments Tuesday 11:00 AM EST With: Where: [address] [address]- Tuesday 11:45 AM EST With: Stuart WISEMAN, Deacon Cortés Where: [address] [address]- You Need to Complete the Following PAP [id number] w/ HPV and Genotype rflx, Cervical, Routine collect, 09/18/24, Order for future visit, Nurse collect, Well woman exam Cervical cancer screening Smoker BMI 25.0-25.9,adult Overweight (BMI 25.0-29.9), Print Label By Order Location, [facility] Medications What How Much When Instructions Unchanged albuterol (Albuterol (Eqv-ProAir HFA) 90 mcg/ inh inhalation aerosol) 2 Puffs Inhalation Every 4 hours as needed Unchanged atorvastatin (atorvastatin 20 mg Tab) See instructions TAKE ONE TABLET BY MOUTH ONCE DAILY AT BEDTIME Unchanged cyclobenzaprine (cyclobenzaprine 5 mg Tab) 1 Tablets By Mouth 3 times a day as needed for Spasm TAKE ONE TABLET BY MOUTH THREE TIMES A DAY FOR 30 DAYS Allergies No Known Allergies Problems Ongoing - Any problem that you are currently receiving treatment for. Back pain Cervical cancer screening COVID-19 Diverticulitis GERD (gastroesophageal reflux disease) High cholesterol Hyperlipidemia IBS (irritable bowel syndrome) Leg cramping Metabolic syndrome Osteopenia Smoker Well woman exam Patient Survey You may receive a survey via text or e-mail asking about your office visit. Please share your experience with us by completing your survey. We appreciate your feedback and thank you for choosing us for your care. Normal [facility] Medicine Office/Clini c Noteon 09-18-2024 Family Medicine Office/Clinic Note Family Medicine Office/Clinic Note HPI Staff Harmony is a 64 year old female presenting with Woman check up: Last pap: 3-4 years ago Results of lap pap: NORMAL Where was it done: here hx: # of pregnancies... 2 abortions... 0 live births... 1 living children...1 menstrual cycle (normal,heavy,ect): cant remember the last one she has had History of STD: NO Do you want tested for STD today: NO Vaginal discharge, odor, itching: no Self breast exam at home? monthly Hx of breast, cervical or uterine cancer in the family: Hysterectomy no Mammogram due @ [facility] History of Present Illness pt presents today for well woman exam Review of Systems PHQ Score Initial Depression Screen Score: 2 SCORE Physical Exam Vitals & Measurements T: 35.8 ???C(Oral) HR: 78(Peripheral) RR: 16 BP: 122/84 SpO2: 98% HT: 64 in HT: 162.5 cm WT: 66.90 kg WT: 147.489 lb BMI: 25.33 General: Well developed, well nourished, in no acute distress Neck: Neck supple. No masses or palpable cervical nodes. Trachea midline. Thyroid without nodules, masses, tenderness, or enlargement Breast: No mass, nodule, discharge, or erythema bilaterally, and no axillary lymphadenopathy Lungs: Normal respiratory effort and clear to auscultation Cardio: Regular rate and rhythm, normal S1 and S2, no murmur, no rub Abdomen: Soft, non-distended, non-tender, normal bowel sounds x4 Gyno: normal external genitalia. Urethra no discharge. Vagina normal without lesions, no vaginal discharge. Cervix normal, without lesions. Uterus normal. No adnexal masses. Pap obtained Neurologic: Grossly normal Skin: [place], moist, no tenting Lymph Nodes: No cervical adenopathy, nodes normal Mental Status: Alert and oriented x3. Normal mood and affect Assessment/Plan 1. Well woman exam (Z01.419: Encounter for gynecological examination (general) (routine) without abnormal findings) pt presents today for well woman exam. BSE discussed. mammogram order provided. pap obtained. cervix tilted. all questions answered. RTC as needed Ordered: Est Preventative 65+ years [address] PAP [id number] w/ HPV and Genotype rflx 2. Cervical cancer screening (Z12.4: Encounter for screening for malignant neoplasm of cervix) pap obtained. Ordered: Est Preventative 65+ years [address] PAP 498496 w/ HPV and Genotype rflx 3. Breast cancer screening by mammogram (Z12.31: Encounter for screening mammogram for malignant neoplasm of breast) mammogram order faxed to [facility] 4. Smoker (F17.200: Nicotine dependence, unspecified, uncomplicated) consider not smoking Ordered: Est Preventative 65+ years [address] PAP 285871 w/ HPV and Genotype rflx 5. BMI 25.0-25.9,adult (Z68.25: Body mass index [BMI] 25.0-25.9, adult) BMI education given Ordered: Est Preventative 65+ years [address] PAP 200243 w/ HPV and Genotype rflx 6. Overweight (BMI 25.0-29.9) (E66.3: Overweight) see above Ordered: Est Preventative 65+ years [address] PAP 647880 w/ HPV and Genotype rflx Follow-up No qualifying data available Problem List/Past Medical History Ongoing Back pain Breast cancer screening by mammogram Cervical cancer screening COVID-19 Diverticulitis GERD (gastroesophageal reflux disease) High cholesterol Hyperlipidemia IBS (irritable bowel syndrome) Leg cramping Metabolic syndrome Osteopenia Smoker Well woman exam Historical No qualifying data Procedure/Surgical History Colonoscopy (2019). Medications Albuterol (Eqv-ProAir HFA) 90 mcg/inh inhalation aerosol, 2 puff(s), Inhalation, q4hr atorvastatin 20 mg Tab, See Instructions cyclobenzaprine 5 mg Tab, 5 mg= 1 tab(s), Oral, TID, PRN Allergies No Known Allergies Social History Alcohol Never., 09/18/2024 Substance Abuse Never., 09/04/2024 Tobacco - High Risk, 09/01/2021 4 or less cigarettes(less than 1/4 pack)/day in last 30 days Tobacco Use:. Never Smokeless Tobacco Use:. Cigarettes, 09/18/2024 Family History Diabetes mellitus type 1: Uncle. Diabetes mellitus type 2: Sister. Heart disease: Aunt and Grandparent. Primary malignant neoplasm of female breast: Mother. Primary malignant neoplasm of female genital organ: Mother. Primary malignant neoplasm of skin: Father, Sister and Sister. Immunizations Vaccine Date Status zoster vaccine, inactivated 08/02/2023 Given zoster vaccine, inactivated 08/02/2023 Recorded pneumococcal 20-valent conjugate vaccine 08/02/2023 Recorded influenza virus vaccine, inactivated 08/02/2023 Recorded zoster vaccine, inactivated 10/19/2022 Recorded influenza virus vaccine, inactivated 10/19/2022 Recorded influenza virus vaccine, inactivated 08/17/2021 Recorded SARS-CoV-2 (COVID-19) mRNA BNT-162b2 vax 02/10/2021 Recorded SARS-CoV-2 (COVID-19) mRNA BNT-162b2 vax 01/19/2021 Recorded influenza virus vaccine, inactivated 09/28/2019 Recorded influenza virus vaccine, inactivated 07/31/2019 Recorded influenza virus vaccine, inactivated 08/10/2018 Recorded inf (more content not included)... Normal [facility] Comment on above: Result Comment: Elec tronically Signed By: Aranza REED, Jasmin Hunter\.br\Date and Time Signed: 09/18/24 09:25 EST PAP [id number] 09-18-2024 Gynecological Body Site END[facility]ERVIX Normal [facility] Comment on above: Performed By: #### 1 [id number] #### [facility] [address] [place] [address] CHEMISTRYOrdered By: SYSTEM SYSTEM on 09-10-2024 Albumin [Mass/Vol] 4.3 g/dL Normal 3.3 - 5.0 gm/dL Rem[facility] Chem Albumin/Globulin [Mass ratio] 2.2 {ratio} Normal 1.1 - 2.2 [facility] ALP [Catalytic activity/Vol] 54 [iU]/d Normal 21 - 98 Int._Unit/L [facility] ALT No additional P-5'-P [Catalytic activity/Vol] 17 [iU]/d Normal 6 - 46 Int._Unit/L [facility] Anion gap [Moles/Vol] 10 mmol/L Normal 6 - 16 mEq/L R emisol Chem AST [Catalytic activity/Vol] 22 [iU]/d Normal 5 - 43 Int._Unit/L [facility] Bilirubin [Mass/Vol] 0.9 mg/dL Normal 0.0 - 1 .1 mg/dL [facility] Calcium [Mass/Vol] 8.8 mg/dL Low 8.9 - 11. 1 mg/dL [facility] Chloride [Moles/Vol] 107 mmol/L Normal 101 - 1 11 mmol/L [facility] Cholesterol [Mass/Vol] 167 mg/dL Normal 120 - 200 mg/dL [facility] Cholesterol in HDL [Mass/Vol] 33 mg/dL Invalid Interpretation Code [facility] Comment on above: Result Comment: '>= 60 LOW RISK' '<= 40 HIGH RISK' Cholesterol in LDL [Mass/Vol] 120 mg/dL Normal <=129mg/dL [facility] Cholesterol in VLDL [Mass/Vol] 17 mg/dL Normal 7 - 40 mg/dL [facility] CO2 [Moles/Vol] 27 mmol/L Normal 21 - 31 mmol/L [facility] Creatinine [Mass/Vol] 0.7 mg/dL Normal 0.5 - 1.3 mg/dL [facility] eGFR 96 mL/min/1.73 m2 Normal >=59mL/min /1 .73 m2 [facility] Globulin (S) [Mass/Vol] 2.0 g/dL Normal 1.4 - 4.0 gm/dL [facility] Glucose [Mass/Vol] 91 mg/dL Normal 55 - 199 mg/dL [facility] Magnesium [Mass/Vol] 2.0 mg/dL Normal 1.3 - 2 .4 mg/dL [facility] Potassium [Moles/Vol] 4.6 mmol/L Normal 3.5 - 5.3 mmol/L [facility] Protein [Mass/Vol] 6.3 g/dL Normal 6.0 - 7.8 gm/dL [facility] Sodium [Moles/Vol] 139 mmol/L Normal 135 - 145 mmol/L [facility] Triglyceride [Mass/Vol] 87 mg/dL Normal <=149mg/dL [facility] Urea nitrogen [Mass/Vol] 16 mg/dL Normal 5 - 21 mg/dL [facility] Urea nitrogen/Creatinine [Mass ratio] 23 mg/mg High 10 - 20 [facility] CMPon 09-10-2024 Albumin [Mass/Vol] 4.3 g/dL Normal 3.3-5.[address] [facility] Comment on above: Performed By: #### [id number] #### [facility] [address] [place] [address] Albumin/Globulin (S) [Mass conc ratio] 2.2 Normal 1.1-2.[address] [facility] Comment on above: Performed By: #### 2 [id number] #### [facility] [address] [place] [address] ALP [Catalytic activity/Vol] 54 Int._Unit/L Normal 21-[address] [facility] Comment on above: Performed By: #### 2 [id number] #### [facility] [address] [place] [address] ALT No additional P-5'-P [Catalytic activity/Vol] 17 Int._Unit/L Normal 6-[address] [facility] Comment on above: Performed By: #### 2 [id number] #### [facility] [address] [place] [address] Anion gap [Moles/Vol] 10 mmol/L Normal 6-16 [facility] Comment on above: Performed By: #### 2 [id number] #### [facility] [address] [place] [address] AST [Catalytic activity/Vol] 22 Int._Unit/L Normal 5-[address] [facility] Comment on above: Performed By: #### 2 [id number] #### [facility] [address] [place] [address] Bilirubin [Mass/Vol] 0.9 mg/dL Normal 0.0-1.1 [facility] Comment on above: Performed By: #### 2 [id number] #### [facility] [address] [place] [address] Calcium [Mass/Vol] 8.8 mg/dL Low 8.9-11.[address] [facility] Comment on above: Performed By: #### 2 [id number] #### [facility] [address] [place] [address] Chloride [Moles/Vol] 107 mmol/L Normal 101-111 [facility] Comment on above: Performed By: #### 2 [id number] #### [facility] [address] [place] [address] CO2 [Moles/Vol] 27 mmol/L Normal 21-31 [facility] Comment on above: Performed By: #### 2 [id number] #### [facility] [address] [place] [address] Creatinine [Mass/Vol] 0.7 mg/dL Normal 0.5-1.3 [facility] Comment on above: Performed By: #### 2 [id number] #### [facility] [address] [place] [address] Globulin (S) [Mass/Vol] 2.0 g/dL Normal 1.4-4.[address] [facility] Comment on above: Performed By: #### 2 [id number] #### [facility] [address] [place] [address] Glucose [Mass/Vol] 91 mg/dL Normal 55-[address] [facility] Comment on above: Performed By: #### 2 [id number] #### [facility] [address] [place] [address] Potassium [Moles/Vol] 4.6 mmol/L Normal 3.5-5.3 [facility] Comment on above: Performed By: #### 2 [id number] #### [facility] [address] [place] [address] Protein [Mass/Vol] 6.3 g/dL Normal 6.0-7.[address] [facility] Comment on above: Performed By: #### 2 [id number] #### [facility] [address] [place] [address] Sodium [Moles/Vol] 139 mmol/L Normal 135-[address] [facility] Comment on above: Performed By: #### 2 [id number] #### [facility] [address] [place] [address] Urea nitrogen [Mass/Vol] 16 mg/dL Normal 5-[address] [facility] Comment on above: Performed By: #### 2 [id number] #### [facility] [address] [place] [address] Urea nitrogen/Creatinine [Mass ratio] 23 No Units High 10-[address] [facility] Comment on above: Performed By: #### 2 [id number] #### [facility] [address] [place] [address] Lipid Panelon 09-10-2024 Cholesterol [Mass/Vol] 167 mg/dL Normal 120-[address] [facility] Comment on above: Performed By: #### 2 [id number] #### [facility] [address] [place] [address] Cholesterol in HDL [Mass/Vol] 33 mg/dL Invalid Interpretation Code [facility] Comment on above: Result Comment: '>= 60 LOW RISK' '<= 40 HIGH RISK' Performed By: #### 2 [id number] #### [facility] [address] [place] [address] Cholesterol in LDL [Mass/Vol] 120 mg/dL Normal <=[address] [facility] Comment on above: Performed By: #### 2 [id number] #### [facility] [address] [place] [address] Cholesterol in VLDL [Mass/Vol] 17 mg/dL Normal 7-[address] [facility] Comment on above: Performed By: #### 2 [id number] #### [facility] [address] [place] [address] Triglyceride [Mass/Vol] 87 mg/dL Normal <=[address] [facility] Comment on above: Performed By: #### 2 [id number] #### [facility] [address] [place] [address] Magnesiumon 09-10-2024 Magnesium [Mass/Vol] 2.0 mg/dL Normal 1.3-2.4 [facility] Comment on above: Performed By: #### 2 [id number] #### [facility] [address] [place] [address] eGFRon 09-10-2024 eGFR 96 mL/min/1.73 m2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 Normal 3.5-5.7 [facility] Comment on above: Order Comment: PT FA STED 12 HOURS Reason for Exam Gareth Gottlieb infection Performed By: #### C MP, CRP #### [address] Albumin/Globulin [Mass ratio] 2.0 {ratio} Normal [facility] Comment on above: Order Comment: PT FA STED 12 HOURS Reason for Exam Gareth Gottlieb infection Performed By: #### C MP, CRP #### [place] [address] [place] ALP [Catalytic activity/Vol] 65 U/L Normal 34-104 [facility] Comment on above: Order Comment: PT FA STED 12 HOURS Reason for Exam Gareth Gottlieb infection Performed By: #### C MP, CRP #### [address] ALT [Catalytic activity/Vol] 18 U/L Normal 7-52 [facility] Comment on above: Order Comment: PT FA STED 12 HOURS Reason for Exam Gareth Gottlieb infection Performed By: #### C MP, CRP #### [facility] [address] Anion gap [Moles/Vol] 9.5 mmol/L Normal 6.0-15.0 [facility] Comment on above: Order Comment: PT FA STED 12 HOURS Reason for Exam Gareth Gottlieb infection Performed By: #### C MP, CRP #### [facility] [address] AST [Catalytic activity/Vol] 17 U/L Normal 13-39 [facility] Comment on above: Order Comment: PT FA STED 12 HOURS Reason for Exam Gareth Gottlieb infection Performed By: #### C MP, CRP #### [facility] [address] [place] [address] Bilirubin [Mass/Vol] 0.6 mg/dL Normal 0.3-1.0 [facility] Comment on above: Order Comment: PT FA STED 12 HOURS Reason for Exam Gareth Gottlieb infection Performed By: #### C MP, CRP #### [facility] [address] Calcium [Mass/Vol] 9.1 mg/dL Normal 8.6-10.3 [facility] Comment on above: Order Comment: PT FA STED 12 HOURS Reason for Exam Gareth Gottlieb infection Performed By: #### C MP, CRP #### [facility] [address] [place] [address] [place] Chloride [Moles/Vol] 110 mmol/L High 98-107 [facility] Comment on above: Order Comment: PT FA STED 12 HOURS Reason for Exam Gareth Gottlieb infection Performed By: #### C MP, CRP #### [facility] [address] [place] [address] [place] CO2 [Moles/Vol] 27.1 mmol/L Normal 21.0-31.0 [facility] Comment on above: Order Comment: PT FA STED 12 HOURS Reason for Exam Gareth Gottlieb infection Performed By: #### C MP, CRP #### [facility] [address] [place] [address] [place] Creatinine [Mass/Vol] 0.64 mg/dL Normal 0.60-1.20 [facility] Comment on above: Order Comment: PT FA STED 12 HOURS Reason for Exam Gareth Gottlieb infection Performed By: #### C MP, CRP #### [facility] [address] [place] [address] [place] GFR/1.73 sq M.predicted MDRD (S/P/Bld) [Vol rate/Area] mL/min/{1.73_m2} [facility] Comment on above: Order Comment: PT FA STED 12 HOURS Reason for Exam Gareth Gottlieb infection Performed By: #### C MP, CRP #### [facility] [address] [place] [address] [place] Globulin (S) [Mass/Vol] 2.2 g/dL [facility] Comment on above: Order Comment: PT FA STED 12 HOURS Reason for Exam Gareth Gottlieb infection Performed By: #### C MP, CRP #### [place] [address] [place] Glucose [Mass/Vol] 95 mg/dL Normal 70-100 [facility] Comment on above: Order Comment: PT FA STED 12 HOURS Reason for Exam Gareth Gottlieb infection Result Comment: [facility] Glucose Reference Range is dependent on time and content of last meal. Glucose of more than 200 mg/dL in a nonstressed, ambulatory subject supports the diagnosis of Diabetes Mellitus. ADA recommended reference range Performed By: #### C MP, CRP #### [facility] [address] [place] [address] [place] Potassium [Moles/Vol] 4.6 mmol/L Normal 3.5-5.1 [facility] Comment on above: Order Comment: PT FA STED 12 HOURS Reason for Exam Gareth Gottlieb infection Performed By: #### C MP, CRP #### [facility] [address] [place] [address] [place] Protein [Mass/Vol] 6.6 g/dL Normal 6.4-8.9 [facility] Comment on above: Order Comment: PT FA STED 12 HOURS Reason for Exam Gareth Gottlieb infection Performed By: #### C MP, CRP #### [place] [address] [place] Sodium [Moles/Vol] 142 mmol/L Normal 136-145 [facility] Comment on above: Order Comment: PT FA STED 12 HOURS Reason for Exam Gareth Gottlieb infection Performed By: #### C MP, CRP #### [facility] [address] Urea nitrogen [Mass/Vol] 14 mg/dL Normal 7-25 [facility] Comment on above: Order Comment: PT FA STED 12 HOURS Reason for Exam Gareth Gottlieb infection Performed By: #### C MP, CRP #### [facility] [address] [place] [address] EBV Ab VCA, IgGon 06-13-2023 EBV Ab VCA, IgG >600.0 High 0.0-17.9 [facility] Comment on above: Order Comment: Reaso n for Exam Gareth Gottlieb infection Result Comment: Nega tive <18.0 Equivocal 18.0 - 21.9 Positive >21.9 Performed By: #### C MVIGG, EBV VCAIGM, EBV VCAIGG, EBVNA, EBVEAG, CMVIGM #### [facility] , EBV Ab VCA, IgMon 06-13-2023 EBV Ab VCA, IgM <36.0 Normal 0.0-35.9 [facility] Comment on above: Order Comment: Reaso n for Exam Gareth Gottlieb infection Result Comment: Nega tive <36.0 Equivocal 36.0 - 43.9 Positive >43.9 Performed at: - [facility] [id number] Internal Audit Director: Valentín Arvizu PhD, Phone: [phone] PERFORMED BY: [place] [address] PATHOLOGIST [employer] INST[employer]ER JESSICA MASON M.D. Performed By: #### C MVIGG, EBV VCAIGM, EBV VCAIGG, EBVNA, EBVEAG, CMVIGM #### [facility] , EBV Nuclear Antigen Abs, IgG on 06-13-2023 EBV Nuclear Antigen Abs, IgG 450.0 High 0.0-17.9 [facility] Comment on above: Order Comment: Reaso n for Exam Gareth Gottlieb infection Result Comment: Nega tive <18.0 Equivocal 18.0 - 21.9 Positive >21.9 Performed By: #### C MVIGG, EBV VCAIGM, EBV VCAIGG, EBVNA, EBVEAG, CMVIGM #### [facility] , Gareth-Gottlieb Virus Early Emma GGon 06-13-2023 Gareth-Gottlieb Virus Early AgIGG <9.0 Normal 0.0-8.9 [facility] Comment on above: Order Comment: Reaso n for Exam Gareth Gottlieb infection Result Comment: Nega tive < 9.0 Equivocal 9.0 - 10.9 Positive >10.9 Performed By: #### C MVIGG, EBV VCAIGM, EBV VCAIGG, EBVNA, EBVEAG, CMVIGM #### [facility] , Erythrocyte Sedimentation Ra danielle 06-13-2023 ESR (Bld) [Velocity] 11 mm/h Normal 0-29 [facility] Comment on above: Order Comment: Reaso n for Exam Gareth Gottlieb infection Result Comment: PERF ORMED BY: [place] [address] PATHOLOGIST [employer] INST[employer]ER JESSICA MASON M.D. Performed By: #### C BC, ESR #### [address] MR Lumbar spine WO contrastO rdered By: [facility] Provider on 02-17-2023 Interpretation and review of laboratory results Abnormal [facility] Radiology Result ACTIONABLE Abnormal [facility] Comment on above: This report contains an incidental or actionable finding. This finding may be a new finding separate from the reason your provider ordered the imaging test or it may be an already known finding that needs additional or continued follow-up. Because of this incidental or actionable finding, you may need another test (imaging or a different type of test). Please contact your provider for the next steps. [facility] MR Lumbar spine WO contrasto n 02-17-2023 IMPRESSION: Mild lumbar degenerative disc disease without significant canal stenosis. Bony foraminal narrowing at L4-5 and L5-S1 as outlined above. Enlarged spleen. Anatomic Lumbar Variant: None. L4-5 is considered the level of the iliac crest and assume there are 5 lumbar-type vertebrae. ACTIONABLE RESULT: FOLLOW-UP Acuity: Actionable Findings: Lymphatic System Routing Code: Lymph_1 Recommendation: CT ABD/PEL (NO ORAL) W IVCON Time Frame: At the discretion of the clinical team. COMMUNICATION: Results will be communicated with the ordering provider via [employer] staff message or phone message by [facility] within 2 business days of report finalization. Algorithms for management of incidental imaging findings can be found on the [facility] Intranet Sharepoint site at: [email or web address] [email or web address] [email or web address] [email or web address]/Fo [email or web address] Director Search Marketing Strategies: DONAVAN Transcribe Date/Time: Feb 17 2023 11:24A Dictated by : BREEZY DOE MD This examination was interpreted and the report reviewed and electronically signed by: BREEZY DOE MD on Feb 17 2023 11:32AM [facility] DIVISION OF RADIOLOGY * * *Final Report* * * DATE OF EXAM: Feb 17 2023 8:57AM [facility] 0303 - MRI LUMBAR SPINE WO IVCON / PROCEDURE REASON: Radiculopathy of lumbar region * * * * Physician Interpretation * * * * EXAMINATION: MRI LUMBAR SPINE WO IVCON CLINICAL HISTORY: Chronic low back pain with radiation to the left buttocks unresponsive to conservative management. TECHNIQUE: Routine lumbosacral spine MR protocol without gadolinium. MQ: [id number] COMPARISON: None. RESULT: Counting reference: Lumbosacral junction. For the purposes of this report, L4-5 is considered the level of the iliac crest and assume there are 5 lumbar-type vertebrae. Anatomic variant: None. Localizer images: Evaluation is somewhat limited by artifact but the spleen appears to be enlarged, measuring approximately 18 cm in length. Alignment: Alignment is anatomic. Mild disc space narrowing is noted at L4-5 and moderate disc space narrowing is evident at L5-S1. Bone marrow signal/fracture: No evidence of pathologic marrow infiltration. No evidence of prior fracture. Conus: The conus is within normal limits of signal intensity and morphology. Paraspinal soft tissues: Paraspinal soft tissues are within normal limits. Lower thoracic spine: Visualized lower thoracic canal and foramina are patent. L1-L2: Canal and foramina are patent. L2-L3: Canal and foramina are patent L3-L4: Canal and foramina are patent L4-L5: Mild facet degenerative change. Canal remains patent. Mild bilateral bony foraminal stenosis. L5-S1: Minimal disc bulging confined to the anterior epidural fat. No impact on the thecal sac. Rostrocaudal facet subluxation accounts for moderate right and mild left foraminal stenosis. Sacrum and iliac wings: The visualized sacrum and iliac wings are within normal limits. DIVISION OF RADIOLOGY Provider, [facility] - 02/17/2023 * * *Final Report* * * DATE OF EXAM: Feb 17 2023 8:57AM [facility] 0303 - MRI LUMBAR SPINE WO IVCON / PROCEDURE REASON: Radiculopathy of lumbar region * * * * Physician Interpretation * * * * EXAMINATION: MRI LUMBAR SPINE WO IVCON CLINICAL HISTORY: Chronic low back pain with radiation to the left buttocks unresponsive to conservative management. TECHNIQUE: Routine lumbosacral spine MR protocol without gadolinium. MQ: MRLSPWO_[id number] COMPARISON: None. RESULT: Counting reference: Lumbosacral junction. For the purposes of this report, L4-5 is considered the level of the iliac crest and assume there are 5 lumbar-type vertebrae. Anatomic variant: None. Localizer images: Evaluation is somewhat limited by artifact but the spleen appears to be enlarged, measuring approximately 18 cm in length. Alignment: Alignment is anatomic. Mild disc space narrowing is noted at L4-5 and moderate disc space narrowing is evident at L5-S1. Bone marrow signal/fracture: No evidence of pathologic marrow infiltration. No evidence of prior fracture. Conus: The conus is within normal limits of signal intensity and morphology. Paraspinal soft tissues: Paraspinal soft tissues are within normal limits. Lower thoracic spine: Visualized lower thoracic canal and foramina are patent. L1-L2: Canal and foramina are patent. L2-L3: Canal and foramina are patent L3-L4: Canal and foramina are patent L4-L5: Mild facet degenerative change. Canal remains patent. Mild bilateral bony foraminal stenosis. L5-S1: Minimal disc bulging confined to the anterior epidural fat. No impact on the thecal sac. Rostrocaudal facet subluxation accounts for moderate right and mild left foraminal stenosis. Sacrum and iliac wings: The visualized sacrum and iliac wings are within normal limits. IMPRESSION IMPRESSION: Mild lumbar degenerative disc disease without significant canal stenosis. Bony foraminal narrowing at L4-5 and L5-S1 as outlined above. Enlarged spleen. Anatomic Lumbar Variant: None. L4-5 is considered the level of the iliac crest and assume there are 5 lumbar-type vertebrae. ACTIONABLE RESULT: FOLLOW-UP Acuity: Actionable Findings: Lymphatic System Routing Code: Lymph_1 Recommendation: CT ABD/PEL (NO ORAL) W IVCON Time Frame: At the discretion of the clinical team. COMMUNICATION: Results will be communicated with the ordering provider via [employer] staff message or phone message by [facility] within 2 business days of report finalization. Algorithms for management of incidental imaging findings can be found on the [facility] Intranet Sharepoint site at: [email or web address] [email or web address] [email or web address] [email or web address]/Fo [email or web address] Director Search Marketing Strategies: DONAVAN Transcribe Date/Time: Feb 17 2023 11:24A Dictated by : BREEZY DOE MD This examination was interpreted and the report reviewed and electronically signed by: BREEZY DOE MD on Feb 17 2023 11:32AM EST [facility] Radiology Study observation (narrative) [facility] CBC AUTO DIFFon 11-18-2022 BASO # 0.0 103/ul Normal 0.0-0.1 [facility] Comment on above: Performed By: #### C BC #### [facility] [address] [address] [address] Matthew Hopkins Basophils/100 WBC (Bld) 0.8 % Normal 0.2-2.0 [facility] Comment on above: Performed By: #### C BC #### [facility] [address] [place] [address] Dr. Matthew Hopkins EO # 0.2 103/ul Normal 0.0-0.7 [facility] Comment on above: Performed By: #### C BC #### [facility] [address] [place] [address] Dr. Matthew Hopkins Eosinophils/100 WBC (Bld) 3.0 % Normal 0.9-7.0 [facility] Comment on above: Performed By: #### C BC #### [facility] [address] [place] [address] Dr. Matthew Hopkins Erythrocyte distribution width (RBC) [Ratio] 13.7 % Normal 11.0-15.0 [facility] Comment on above: Performed By: #### C BC #### [facility] [address] [place] [address] Dr. Matthew Hopkins Hematocrit (Bld) [Volume fraction] 44.1 % Normal 36.0-48.0 [facility] Comment on above: Performed By: #### C BC #### [facility] [address] [place] [address] Dr. Matthew Hopkins Hemoglobin (Bld) [Mass/Vol] 14.4 g/dL Normal 12.0-16.0 [facility] Comment on above: Performed By: #### C BC #### [facility] [address] [place] [address] Dr. Matthew Hopkins IG # 0.03 10e3/ul Normal 0.00-0.03 [facility] Comment on above: Performed By: #### C BC #### [facility] [address] [place] [address] Dr. Matthew Hopkins IG % 0.6 % Critically high 0.0-0.5 [facility] Comment on above: Performed By: #### C BC #### [facility] [address] [place] [address] Dr. Matthew Hopkins LYMPH # 1.4 103/ul Normal 1.2-3.8 [facility] Comment on above: Performed By: #### C BC #### [facility] [address] [place] [address] Dr. Matthew Hopkins Lymphocytes/100 WBC (Bld) 26.9 % Normal 20.5-60.0 [facility] Comment on above: Performed By: #### C BC #### [facility] [address] [place] [address] Dr. Matthew Hopkins MANUAL DIFF REQ NO Normal [facility] Comment on above: Performed By: #### C BC #### [facility] [address] [place] [address] Dr. Matthew Hopkins MCH (RBC) [Entitic mass] 27.7 pg Normal 26.7-34.0 [facility] Comment on above: Performed By: #### C BC #### [facility] [address] [place] [address] Dr. Matthew Hopkins MCHC (RBC) [Mass/Vol] 32.7 g/dL Normal 29.9-35.2 [facility] Comment on above: Performed By: #### C BC #### [facility] [address] [place] [address] Dr. Matthew Hopkins MCV (RBC) [Entitic vol] 85.0 fL Normal 81.0-99.0 [facility] Comment on above: Performed By: #### C BC #### [facility] [address] [place] [address] Dr. Matthew Hopkins MONO # 0.4 103/ul Normal 0.3-0.8 [facility] Comment on above: Performed By: #### C BC #### [facility] [address] [place] [address] Dr. Matthew Hopkins Monocytes/100 WBC (Bld) 6.9 % Normal 1.7-12.0 [facility] Comment on above: Performed By: #### C BC #### [facility] [address] [place] [address] Dr. Matthew Hopkins NEUT # 3.1 103/ul Normal 1.4-6.5 [facility] Comment on above: Performed By: #### C BC #### [facility] [address] [address] [address] Matthew Hopkins Neutrophils/100 WBC (Bld) 61.8 % Normal 43.0-75.0 [facility] Comment on above: Performed By: #### C BC #### [facility] [address] [address] [address] Matthew Hopkins Platelet mean volume (Bld) [Entitic vol] 10.0 fL Normal 9.5-13.5 [facility] Comment on above: Performed By: #### C BC #### [facility] [address] [address] [address] Matthew Hopkins PLT 167 103/ul Normal 150-450 [facility] Comment on above: Performed By: #### C BC #### [facility] [address] [place] [address] Dr. Matthew Hopkins RBC 5.19 106/ul Normal 4.20-5.40 [facility] Comment on above: Performed By: #### C BC #### [facility] [address] [address] [address] Mattehw Hopkins WBC 5.1 103/ul Normal 4.0-11.0 [facility] Comment on above: Performed By: #### C BC #### [facility] [address] [address] [address] Matthew Hopkins GLYCOHEMOGLOBIN A1Con 2022 ADA RECOMMENDATION SEE BELOW Normal [facility] Comment on above: Result Comment: ADA RECOMMENDED LIMIT 4.0 - 6.0 ADA THERAPEUTIC TARGET < 7.0 ACTION SUGGESTED > 7.0 Performed By: #### A 1C #### [facility] [address] [place] [address] Dr. Matthew Hopkins Glucose [Mass/Vol] 114 mg/dL Normal [facility] Comment on above: Performed By: #### A 1C #### [facility] [address] [place] [address] Dr. Matthew Hopkins HbA1c (Bld) [Mass fraction] 5.6 % Normal 4.5-6.2 [facility] Comment on above: Performed By: #### A 1C #### [facility] [address] [place], [place] [address] Dr. Matthew Hopkins LIPID PROFILEon 11-18-2022 CHOL-HDL RATIO NORM SEE BELOW Normal [facility] Comment on above: Result Comment: 3.3 - 4.4 LOW RISK 4.4 - 7.1 AVERAGE RISK 7.1 - 11.0 MODERATE RISK >11.0 HIGH RISK Performed By: #### C MP, LIPID ####[facility] [address] [place], [place] [address]Cq. Matthew Hopkins Cholesterol [Mass/Vol] 148 mg/dL Normal <=200 [facility] Comment on above: Performed By: #### C MP, LIPID ####[facility] [address] [place] [id number] Hopkins Cholesterol in HDL [Mass/Vol] 39 mg/dL Critically low 40-60 [facility] Comment on above: Performed By: #### C MP, LIPID ####[facility] [address] [place] [id number] Hopkins Cholesterol in LDL [Mass/Vol] 90.4 mg/dL Normal [facility] Comment on above: Performed By: #### C MP, LIPID ####[facility] [address] [place] [id number] Hopkins Cholesterol.total/Cho lesterol in HDL [Mass ratio] 3.8 {ratio} Normal [facility] Comment on above: Performed By: #### C MP, LIPID ####[facility] [address] [place] [id number]. Matthew Hopkins HDL NORMAL > or = 60 mg/dl - LO W CARDIOVASCULAR RISK <40 mg/dl - HIGH CARDIOVASCULAR RISK Normal [facility] Comment on above: Performed By: #### C MP, LIPID ####[facility] [address] [place] [id number]. Matthew Hopkins LDL CALC NORMAL SEE BELOW Normal [facility] Comment on above: Result Comment: <100 mg/dl OPTIMAL 100 - 129 mg/dl NEAR OR ABOVE OPTIMAL 130 - 159 mg/dl BORDERLINE HIGH 160 - 189 mg/dl HIGH >190 mg/dl VERY HIGH Performed By: #### C MP, LIPID ####[facility] [address] [place] [id number]. Matthew Hopkins Triglyceride [Mass/Vol] 93 mg/dL Normal <=150 [facility] Comment on above: Performed By: #### C MP, LIPID ####[facility] [address] [place] [id number]. Matthew Hopkins VLDL CALC 18.6 mg/dL Normal [facility] Comment on above: Performed By: #### C MP, LIPID ####[facility] [address] [place] [address]Dr. Matthew Hopkins PROF 14(COMP METB)on 023 Albumin [Mass/Vol] 3.9 g/dL Normal 3.4-5.0 [facility] Comment on above: Performed By: #### C MP, LIPID ####[facility] [address] [address]Dr. Matthew Hopkins Albumin/Globulin [Mass ratio] 1.3 {ratio} Normal [facility] Comment on above: Performed By: #### C MP, LIPID ####[facility] [address] [place] [address]Dr. Matthew Hopkins ALP [Catalytic activity/Vol] 65 U/L Normal 46-116 [facility] Comment on above: Performed By: #### C MP, LIPID ####[facility] [address] [place] [address]Dr. Matthew Hopkins ALT [Catalytic activity/Vol] 28 U/L Normal 14-59 [facility] Comment on above: Performed By: #### C MP, LIPID ####[facility] [address] [place] [address]Dr. Matthew Hopkins Anion gap [Moles/Vol] 13.3 mmol/L Normal [facility] Comment on above: Performed By: #### C MP, LIPID ####[facility] [address] [place] [address]Dr. Matthew Hopkins AST [Catalytic activity/Vol] 23 U/L Normal 15-37 [facility] Comment on above: Performed By: #### C MP, LIPID ####[facility] [address] [place] [id number]. Matthew Hopkins Bilirubin [Mass/Vol] 0.3 mg/dL Normal 0.2-1.0 [facility] Comment on above: Performed By: #### C MP, LIPID ####[facility] [address] [place] [address]Dr. Matthew Hopkins Calcium [Mass/Vol] 8.9 mg/dL Normal 8.5-10.1 [facility] Comment on above: Performed By: #### C MP, LIPID ####[facility] [address] [place] [address]Dr. Matthew Hopkins Chloride [Moles/Vol] 105 mmol/L Normal 98-107 [facility] Comment on above: Performed By: #### C MP, LIPID ####[facility] [address] [place], [place] [address]Dr. Matthew Hopkins CO2 [Moles/Vol] 27.0 mmol/L Normal 21.0-32.0 [facility] Comment on above: Performed By: #### C MP, LIPID ####[facility] [address] [place], [place] [address]Dr. Matthew Hopkins Creatinine [Mass/Vol] 0.64 mg/dL Normal 0.55-1.02 [facility] Comment on above: Performed By: #### C MP, LIPID ####[facility] [address] [place] [address]Dr. Matthew Hopkins EGFR-AF URUGUAYAN >60 Normal >=60 [facility] Comment on above: Performed By: #### C MP, LIPID ####[facility] [address] [place] [id number]. Matthew Hopkins EGFR-NON AF URUGUAYAN >60 Normal >=60 [facility] Comment on above: Performed By: #### C MP, LIPID ####[facility] [address] [place] [address]Dr. Matthew Hopkins Globulin (S) [Mass/Vol] 3.1 g/dL Normal [facility] Comment on above: Performed By: #### C MP, LIPID ####[facility] [address] [place] [id number]. Matthew Hopkins Glucose [Mass/Vol] 97 mg/dL Normal 74-106 [facility] Comment on above: Performed By: #### C MP, LIPID ####[facility] [address] [place] [address]Dr. Matthew Hopkins Potassium [Moles/Vol] 4.3 mmol/L Normal 3.5-5.1 [facility] Comment on above: Performed By: #### C MP, LIPID ####[facility] [address] [place] [address]Dr. Matthew Hopkins Protein [Mass/Vol] 7.0 g/dL Normal 6.4-8.2 [facility] Comment on above: Performed By: #### C MP, LIPID ####[facility] [address] [place], [place] [address]Dr. Matthew Hopkins Sodium [Moles/Vol] 141 mmol/L Normal 136-145 [facility] Comment on above: Performed By: #### C MP, LIPID ####[facility] [address] [place], [place] [address]Dr. Matthew Sandeep Urea nitrogen [Mass/Vol] 15.0 mg/dL Normal 7.0-18.0 [facility] Comment on above: Performed By: #### C MP, LIPID ####[facility] [address] [place] [address]Dr. Matthew Sandeep Urea nitrogen/Creatinine [Mass ratio] 23.4 mg/mg Normal [facility] Comment on above: Performed By: #### C MP, LIPID ####[facility] [address] [place] [id number]. Matthew Hopkins [facility] 25 mm/hr Normal <=30 [facility] Comment on above: Performed By: #### S EDR ####[facility] [address] [place], [place] [address]Dr. Matthew Sandeep XR TSPINE 2 VIEWSon 11-18-19 23 XR TSPINE 2 VIEWS EXAMINATION: XR TSPINE 2 VIEWS, XR LSPINE MIN 4 VIEWS HISTORY: H/O: fracture ; chronic mid and lower back pain increasing in severity COMPARISON: XR T-spine 08/24/2021 XR L-spine 11/24/2012 FINDINGS: BONES: Slight right convex curvature of thoracic spine. Chronic anterior wedging of T7 (or possibly T6) vertebral body with loss of 50% of its height. Mild degenerative endplate changes T10-11, T11-12. Moderate degenerative facet arthropathy L4-5, L5-S1. DISC SPACES: Multilevel mild-moderate narrowing of the mid and lower thoracic spine. Moderate-marked narrowing L5-S1. PARASPINOUS: Negative. No paraspinous abnormality is seen. OTHER: Negative. IMPRESSION: 1. T7 moderate compression fracture; stable to slightly progressed. 2. L5-S1 moderate-marked degenerative disc disease. 3. Moderate degenerative facet arthropathy of lower lumbar spine. Electronically authenticated by: MERLINE MELENDREZ Date: 2022-11-18 09:27 Normal [facility] XR CHEST 2 Von 04-20-2022 XR CHEST 2 V EXAM: XR CHEST 2 V HISTORY: Cough EXAM: XR CHEST 2 V INDICATION: 62 years old Female Cough COMPARISON: None. FINDINGS: The cardiac silhouette is normal. There is no pulmonary edema. The lungs are clear. There is no pneumonia. There is no pneumothorax. There is no abnormal foreign body. IMPRESSION: There is no acute abnormality. Electronically authenticated by: BRYCE GARSIA Date: 2022-04-20 15:27 Normal [facility] PAP ACOG PANEL 2: 30 to 65on 12-01-2021 . . Normal [facility] Comment on above: Result Comment: Perf ormed at: WB Performed By: #### [id number] #### [facility] [address] [address] [address] Matthew Hopkins Age Gdln ACOG Testing 30-65 Normal [facility] Comment on above: Performed By: #### [id number] #### [facility] [address] [address] [address] Matthew Hopkins DIAGNOSIS: Comment Normal [facility] Comment on above: Result Comment: NEGA TIVE FOR INTRAEPITHELIAL LESION OR MALIGNANCY. Performed at: WB Performed By: #### [id number] #### [facility] [address] [place] [address] Dr. Matthew Hopkins HPV Aptima Negative Normal Negative [facility] Comment on above: Result Comment: This nucleic acid amplification test detects fourteen high-risk HPV types (16,18,31,33,35,39,45,51,52,56,58,59,66,68) without differentiation. Performed at: =G Performed By: #### [id number] #### [facility] [address] [place] [address] Dr. Matthew Hopkins Methodology: Comment Normal [facility] Comment on above: Result Comment: This liquid based ThinPrep(R) pap test was screened with the use of an image guided system. Performed at: WB Performed By: #### [id number] #### [facility] [address] [place] [address] Dr. Matthew Hopkins Note: Comment Normal [facility] Comment on above: Result Comment: The Pap smear is a screening test designed to aid in the detection of premalignant and malignant conditions of the uterine cervix. It is not a diagnostic procedure and should not be used as the sole means of detecting cervical cancer. Both false-positive and false-negative reports do occur. . Performed at: WB Performed By: #### [id number] #### [facility] [address] [place] [address] Dr. Matthew Hopkins Performed by: Comment Normal [facility] Comment on above: Result Comment: James Amezcua, Client Support Manager (ASCP) Performed at: WB Performed By: #### [id number] #### [facility] [address] [place] [address] Dr. Matthew Hopkins Specimen adequacy: Comment Normal [facility] Comment on above: Result Comment: Sati sfactory for evaluation. Endocervical and/or squamous metaplastic cells (endocervical component) are present. Performed at: WB Performed By: #### [id number] #### [facility] [address] [place] [address] Dr. Matthew Hopkins CBC AUTO DIFFon 11-26-2021 BASO # 0.0 103/ul Normal 0.0-0.1 [facility] Comment on above: Performed By: #### C BC #### [facility] [address] [place] [address] Dr. Matthew Hopkins Basophils/100 WBC (Bld) 0.6 % Normal 0.2-2.0 [facility] Comment on above: Performed By: #### C BC #### [facility] [address] [place] [address] Dr. Matthew Hopkins EO # 0.3 103/ul Normal 0.0-0.7 [facility] Comment on above: Performed By: #### C BC #### [facility] [address] [place] [address] Dr. Matthew Hopkins Eosinophils/100 WBC (Bld) 5.3 % Normal 0.9-7.0 [facility] Comment on above: Performed By: #### C BC #### [facility] [address] [place] [address] Dr. Matthew Hopkins Erythrocyte distribution width (RBC) [Ratio] 13.4 % Normal 11.0-15.0 [facility] Comment on above: Performed By: #### C BC #### [facility] [address] [place] [address] Dr. Matthew Hopkins Hematocrit (Bld) [Volume fraction] 45.4 % Normal 36.0-48.0 [facility] Comment on above: Performed By: #### C BC #### [facility] [address] [place] [address] Dr. Matthew Hopkins Hemoglobin (Bld) [Mass/Vol] 14.8 g/dL Normal 12.0-16.0 [facility] Comment on above: Performed By: #### C BC #### [facility] [address] [place] [address] Dr. Matthew Hopkins IG # 0.04 10e3/ul Critically high 0.00-0.03 [facility] Comment on above: Performed By: #### C BC #### [facility] [address] [place] [address] Dr. Matthew Hopkins IG % 0.8 % Critically high 0.0-0.5 [facility] Comment on above: Performed By: #### C BC #### [facility] [address] [place] [address] Dr. Matthew Hopkins LYMPH # 1.3 103/ul Normal 1.2-3.8 [facility] Comment on above: Performed By: #### C BC #### [facility] [address] [place] [address] Dr. Matthew Hopkins Lymphocytes/100 WBC (Bld) 26.1 % Normal 20.5-60.0 [facility] Comment on above: Performed By: #### C BC #### [facility] [address] [place] [address] Dr. Matthew Hopkins MANUAL DIFF REQ NO Normal [facility] Comment on above: Performed By: #### C BC #### [facility] [address] [place] [address] Dr. Matthew Hopkins MCH (RBC) [Entitic mass] 29.1 pg Normal 26.7-34.0 [facility] Comment on above: Performed By: #### C BC #### [facility] [address] [place] [address] Dr. Matthew Hopkins MCHC (RBC) [Mass/Vol] 32.6 g/dL Normal 29.9-35.2 [facility] Comment on above: Performed By: #### C BC #### [facility] [address] [place] [address] Dr. Matthew Hopkins MCV (RBC) [Entitic vol] 89.2 fL Normal 81.0-99.0 [facility] Comment on above: Performed By: #### C BC #### [facility] [address] [place] [address] Dr. Matthew Hopkins MONO # 0.4 103/ul Normal 0.3-0.8 [facility] Comment on above: Performed By: #### C BC #### [facility] [address] [place] [address] Dr. Matthew Hopkins Monocytes/100 WBC (Bld) 8.1 % Normal 1.7-12.0 [facility] Comment on above: Performed By: #### C BC #### [facility] [address] [place] [address] Dr. Matthew Hopkins NEUT # 3.0 103/ul Normal 1.4-6.5 [facility] Comment on above: Performed By: #### C BC #### [facility] [address] [place] [address] Dr. Matthew Hopkins Neutrophils/100 WBC (Bld) 59.1 % Normal 43.0-75.0 [facility] Comment on above: Performed By: #### C BC #### [facility] [address] [place] [address] Dr. Matthew Hopkins Platelet mean volume (Bld) [Entitic vol] 10.2 fL Normal 9.5-13.5 [facility] Comment on above: Performed By: #### C BC #### [facility] [address] [place] [address] Dr. Matthew Hopkins PLT 173 103/ul Normal 150-450 [facility] Comment on above: Performed By: #### C BC #### [facility] [address] [place] [address] Dr. Matthew Hopkins RBC 5.09 106/ul Normal 4.20-5.40 [facility] Comment on above: Performed By: #### C BC #### [facility] [address] [place] [address] Dr. Matthew Hopkins WBC 5.1 103/ul Normal 4.0-11.0 [facility] Comment on above: Performed By: #### C BC #### [facility] [address] [place] [address] Dr. Matthew Hopkins GLYCOHEMOGLOBIN A1Con 2021 ADA RECOMMENDATION ADA THERAPEUTIC TARGET 6.0 - 7.0 ACTION SUGGESTED > 7.0 [facility] Comment on above: Performed By: #### A 1C #### [facility] [address] [place] [address] Dr. Matthew Hopkins Glucose [Mass/Vol] 120 mg/dL Normal [facility] Comment on above: Performed By: #### A 1C #### [facility] [address] [address] [address] Matthew Hopkins HbA1c (Bld) [Mass fraction] 5.8 % Normal <=6.0 [facility] Comment on above: Performed By: #### A 1C #### [facility] [address] [address] [address] Matthew Hopkins LIPID PROFILEon 11-26-2021 CHOL-HDL RATIO NORM SEE BELOW Normal [facility] Comment on above: Result Comment: 3.3 - 4.4 LOW RISK 4.4 - 7.1 AVERAGE RISK 7.1 - 11.0 MODERATE RISK >11.0 HIGH RISK Performed By: #### L IPID, CMP #### [facility] [address] [place] [address] Dr. Matthew Hopkins Cholesterol [Mass/Vol] 157 mg/dL Normal <=200 [facility] Comment on above: Performed By: #### L IPID, CMP #### [facility] [address] [place] [address] Dr. Matthew Hopkins Cholesterol in HDL [Mass/Vol] 42 mg/dL Normal [facility] Comment on above: Performed By: #### L IPID, CMP #### [facility] [address] [place] [address] Dr. Matthew Hopkins Cholesterol in LDL [Mass/Vol] 92.8 mg/dL Normal [facility] Comment on above: Performed By: #### L IPID, CMP #### [facility] [address] [address] [address] Matthew Hopkins Cholesterol.total/Cho lesterol in HDL [Mass ratio] 3.7 {ratio} Normal [facility] Comment on above: Performed By: #### L IPID, CMP #### [facility] [address] [address] [address] Matthew Hopkins HDL NORMAL > or = 60 mg/dl - LO W CARDIOVASCULAR RISK <40 mg/dl - HIGH CARDIOVASCULAR RISK Normal [facility] Comment on above: Performed By: #### L IPID, CMP #### [facility] [address] [address] [address] Matthew Hopkins LDL CALC NORMAL SEE BELOW Normal [facility] Comment on above: Result Comment: <100 mg/dl OPTIMAL 100 - 129 mg/dl NEAR OR ABOVE OPTIMAL 130 - 159 mg/dl BORDERLINE HIGH 160 - 189 mg/dl HIGH >190 mg/dl VERY HIGH Performed By: #### L IPID, CMP #### [facility] [address] [address] [address] Matthew Hopkins Triglyceride [Mass/Vol] 111 mg/dL Normal <=150 [facility] Comment on above: Performed By: #### L IPID, CMP #### [facility] [address] [address] [address] Matthew Hopkins VLDL CALC 22.2 mg/dL Normal [facility] Comment on above: Performed By: #### L IPID, CMP #### [facility] [address] [place] [address] Dr. Matthew Hopkins PROF 14(COMP METB)on 022 Albumin [Mass/Vol] 3.9 g/dL Normal 3.5-5.0 [facility] Comment on above: Performed By: #### L IPID, CMP #### [facility] [address] [address] [address] Matthew Hopkins Albumin/Globulin [Mass ratio] 1.2 {ratio} Normal [facility] Comment on above: Performed By: #### L IPID, CMP #### [facility] [address] [address] [address] Matthew Hopkins ALP [Catalytic activity/Vol] 69 U/L Normal 38-126 [facility] Comment on above: Performed By: #### L IPID, CMP #### [facility] [address] [address] [address] Matthew Hopkins ALT [Catalytic activity/Vol] 39 U/L Normal 9-52 [facility] Comment on above: Performed By: #### L IPID, CMP #### [facility] [address] [address] [address] Matthew Hopkins Anion gap [Moles/Vol] 9.1 mmol/L Normal [facility] Comment on above: Performed By: #### L IPID, CMP #### [facility] [address] [place] [address] Dr. Matthew Hopkins AST [Catalytic activity/Vol] 18 U/L Normal 14-36 [facility] Comment on above: Performed By: #### L IPID, CMP #### [facility] [address] [place] [address] Dr. Matthew Hopkins Bilirubin [Mass/Vol] 0.5 mg/dL Normal 0.2-1.3 [facility] Comment on above: Performed By: #### L IPID, CMP #### [facility] [address] [place] [address] Dr. Matthew Hopkins Calcium [Mass/Vol] 8.9 mg/dL Normal 8.4-10.2 [facility] Comment on above: Performed By: #### L IPID, CMP #### [facility] [address] [place] [address] Dr. Matthew Hopkins Chloride [Moles/Vol] 105 mmol/L Normal 98-107 [facility] Comment on above: Performed By: #### L IPID, CMP #### [facility] [address] [place] [address] Dr. Matthew Hopkins CO2 [Moles/Vol] 27.4 mmol/L Normal 22.0-30.0 [facility] Comment on above: Performed By: #### L IPID, CMP #### [facility] [address] [place] [address] Dr. Matthew Hopkins Creatinine [Mass/Vol] 0.67 mg/dL Normal 0.52-1.04 [facility] Comment on above: Performed By: #### L IPID, CMP #### [facility] [address] [place] [address] Dr. Matthew Hopkins EGFR-AF URUGUAYAN >60 Normal >=60 [facility] Comment on above: Performed By: #### L IPID, CMP #### [facility] [address] [place] [address] Dr. Matthew Hopkins EGFR-NON AF URUGUAYAN >60 Normal >=60 [facility] Comment on above: Performed By: #### L IPID, CMP #### [facility] [address] [place] [address] Dr. Matthew Hopkins Globulin (S) [Mass/Vol] 3.2 g/dL Normal [facility] Comment on above: Performed By: #### L IPID, CMP #### [facility] [address] [place] [address] Dr. Matthew Hopkins Glucose [Mass/Vol] 114 mg/dL Critically high 74-[address] [facility] Comment on above: Performed By: #### L IPID, CMP #### [facility] [address] [place] [address] Dr. Matthew Hopkins Potassium [Moles/Vol] 4.5 mmol/L Normal 3.4-5.0 [facility] Comment on above: Performed By: #### L IPID, CMP #### [facility] [address] [place] [address] Dr. Matthew Hopkins Protein [Mass/Vol] 7.1 g/dL Normal 6.1-8.2 [facility] Comment on above: Performed By: #### L IPID, CMP #### [facility] [address] [place] [address] Dr. Matthew Hopkins Sodium [Moles/Vol] 137 mmol/L Normal 137-145 [facility] Comment on above: Performed By: #### L IPID, CMP #### [facility] [address] [place] [address] Dr. Matthew Hopkins Urea nitrogen [Mass/Vol] 15.0 mg/dL Normal 7.0-17.0 [facility] Comment on above: Performed By: #### L IPID, CMP #### [facility] [address] [place] [address] Dr. Matthew Hopkins Urea nitrogen/Creatinine [Mass ratio] 22.4 mg/mg Normal [facility] Comment on above: Performed By: #### L IPID, CMP #### [facility] [address] [place] [address] Dr. Matthew Hopkins [address] 10-16-2021 SCOLIOSIS 2 [facility] Department of Radiology [address] [place] [address] Patient Name: VERNELL CASILLAS : 1960 Sex: F Age: Race: White Pt. Location: Patient Status: D Ordered Date: 10/16/2021 12:35:00 PM Completed Date: 10/16/2021 12:34 PM Requesting Provider: WILLI ORTIZ Attending Provider: WILLI ORTIZ Report Copy To: Signs & Symptoms: M41.9 Scoliosis, unspecified I10 History: Comments: evaluate Exam: SCOLIOSIS 2 [facility] SCOLIOSIS 2 [facility] HISTORY: Scoliosis. COMPARISON: None. Findings: Roughly 12 degrees dextroconvex curvature spanning T5-T12. Neutral coronal balance. No significant pelvic tilt. Neutral sagittal balance. 53 degrees sacral slope. No acute abnormality. No compression deformity of the visualized cervical spine. There is however indeterminate mild to moderate anterior wedging involving T6. Depending on clinical symptoms, consider MRI. Slightly exaggerated thoracic kyphosis. IMPRESSION: 1. Age-indeterminate mild to moderate anterior wedging T6. Depending on clinical symptoms, consider MRI. 2. Mild dextroconvex curvature centered at the midthoracic spine. Electronically signed: Arnold Whelan. Transcribed by: [email or web address], User Resident: Electronically Signed by: ARNOLD WHELAN @ 10/17/2021 11:50 AM Normal [facility] Comment on above: Order Comment: evalu ate Vital Signs Date Time Vital Sign Value Performing Clinician Facility 10-18-2024 14:18-0500 Body height 162.6 cm Octaviano Krueger MD Work Phone: [facility] 10-18-2024 14:18-0500 Body mass index (BMI) [Ratio] 26.01 kg/m2 Octaviano Krueger MD Work Phone: [facility] 10-18-2024 14:18-0500 Body temperature 97.3 [degF] Octaviano Krueger MD Work Phone: [facility] 10-18-2024 14:18-0500 Body weight 68.77 kg Octaviano Krueger MD Work Phone: [facility] 10-18-2024 14:18-0500 Diastolic blood pressure 82 mm[Hg] Octaviano Krueger MD Work Phone: [facility] 10-18-2024 14:18-0500 Heart rate 49 /min Octaviano Krueger MD Work Phone: [facility] 10-18-2024 14:18-0500 Respiratory rate 16 /min Octaviano Krueger MD Work Phone: [facility] 10-18-2024 14:18-0500 SaO2% (BldA) [Mass fraction] 97 % Octaviano Krueger MD Work Phone: [facility] 10-18-2024 14:18-0500 Systolic blood pressure 133 mm[Hg] Octaviano Krueger MD Work Phone: [facility] 07-21-2023 14:04-0400 Body height 162.6 cm Octaviano Krueger MD Work Phone: [facility] 07-21-2023 14:04-0400 Body temperature 97.2 [degF] Octaviano Krueger MD Work Phone: [facility] 07-21-2023 14:04-0400 Body weight 76.75 kg Octaviano Krueger MD Work Phone: [facility] 07-21-2023 14:04-0400 Diastolic blood pressure 54 mm[Hg] Octaviano Krueger MD Work Phone: [facility] 07-21-2023 14:04-0400 Heart rate 83 /min Octaviano Krueger MD Work Phone: [facility] 07-21-2023 14:04-0400 Respiratory rate 18 /min Octaviano Krueger MD Work Phone: [facility] 07-21-2023 14:04-0400 SaO2% (BldA) [Mass fraction] 98 % Octaviano Krueger MD Work Phone: [facility] 07-21-2023 14:04-0400 Systolic blood pressure 126 mm[Hg] Octaviano Krueger MD Work Phone: [facility] 07-04-2023 12:55-0400 Body height 162.56 cm Kajal Blackmon Other [employer] Other 07-04-2023 12:55-0400 Body mass index (BMI) [Ratio] 29.31 kg/m2 Kajal Blackmon Other [employer] Other 07-04-2023 12:55-0400 Body temperature 97.6 [degF] Kajal Blackmon Other [employer] Other 07-04-2023 12:55-0400 Body weight 77.47 kg Kajal Blackmon Other [employer] Other 07-04-2023 12:55-0400 Diastolic blood pressure 47 mm[Hg] Kajal Blackmon Other [employer] Other 07-04-2023 12:55-0400 Respiratory rate 18 /min Kajal Hoyt [employer] Other 07-04-2023 12:55-0400 SaO2% (BldA) [Mass fraction] 98 % Kajal Pearlley Other [employer] Other 07-04-2023 12:55-0400 Systolic blood pressure 104 mm[Hg] Kajal Lorri Other [employer] Other 05-19-2023 15:00-0400 Body height 162.56 cm Romero Anna Other [employer] Other 05-19-2023 15:00-0400 Body mass index (BMI) [Ratio] 29.69 kg/m2 Romero Anna Other [employer] Other 05-19-2023 15:00-0400 Body temperature 97.9 [degF] Romero Anna Other [employer] Other 05-19-2023 15:00-0400 Body weight 78.47 kg Romero Anna Other [employer] Other 05-19-2023 15:00-0400 Diastolic blood pressure 88 mm[Hg] Romero Anna Other [employer] Other 05-19-2023 15:00-0400 Systolic blood pressure 131 mm[Hg] Romero Anna Other [employer] Other 02-23-2023 13:47-0400 Body height 162.6 cm Romero Chapman PA-C Work Phone: [facility] 02-23-2023 13:47-0400 Body weight 84.37 kg Romreo Chapman PA-C Work Phone: [facility] 02-23-2023 13:47-0400 Diastolic blood pressure 89 mm[Hg] Romero Chapman PA-C Work Phone: [facility] 02-23-2023 13:47-0400 Heart rate 88 /min Romero Chapman PA-C Work Phone: [facility] 02-23-2023 13:47-0400 Systolic blood pressure 146 mm[Hg] Romero MARTINO-C Work Phone: [facility] 01-26-2023 10:02-0400 Body height 162.6 cm Romero MARTINO-C Work Phone: [facility] 01-26-2023 10:02-0400 Body weight 82.56 kg Romero Chapman PA-C Work Phone: [facility] 01-26-2023 10:02-0400 Diastolic blood pressure 86 mm[Hg] Romero MARTINO-C Work Phone: [facility] 01-26-2023 10:02-0400 Heart rate 92 /min Romero MARTINO-C Work Phone: [facility] 01-26-2023 10:02-0400 SaO2% (BldA) [Mass fraction] 98 % Romero Chapman PA-C Work Phone: [facility] 01-26-2023 10:02-0400 Systolic blood pressure 135 mm[Hg] Romero MARTINO-C Work Phone: [facility] Encounters Encounter Date Encounter Type Care Provider Facility Start: 08-08-2025 ambulatory Deacon Humphreys Facility :[facility] [place] Start: 06-07-2025 ambulatory STEPHANI HURLEY Fa cility:[facility] [place] Start: 05-23-2025 End: 05-23-2025 ambulatory STEPHANI HURLEY Facility:[facility] Romero evue Start: 02-07-2025 End: 02-07-2025 ambulatory Deacon Humphreys Facility:[facility] [place] Start: 11-14-2024 End: 11-14-2024 Orders Only Elizabeth Stout Work Phone: Hematology/Oncology Start: 11-08-2024 End: 11-08-2024 ambulatory Deacon Humphreys Facility: [facility] Start: 10-22-2024 End: 10-22-2024 ambulatory Octaviano Krueger Facility:[facility] Start: 10-22-2024 End: 10-22-2024 Patient encounter procedure Octaviano Krueger [facility] Start: 10-18-2024 End: 10-18-2024 Office outpatient visit 15 minutes Octaviano Krueger MD Work Phone: Hematology/Oncology Comment on above: Splenomegaly (Primar y Dx) Start: 10-18-2024 End: 10-18-2024 ambulatory OCTAVIANO KRUEGER Facility:[facility] Start: 10-18-2024 End: 10-30-2024 Telephone encounter Octaviano Krueger MD Work Phone: Cancer [facility] Comment on above: Future Appointment; Results Start: 10-01-2024 End: 10-01-2024 ambulatory Deacon Humphreys Facility: [facility] Start: 09-18-2024 End: 09-18-2024 Lab Drop off Jasmin Hunter Aranza [facility] Start: 09-18-2024 End: 09-18-2024 ambulatory Jasmin L Aranza Facility: [facility] Start: 09-17-2024 End: 09-17-2024 ambulatory Deacon Humphreys Facility:[facility] Start: 09-17-2024 End: 09-17-2024 Patient encounter procedure Deacon Humphreys [facility] Start: 09-10-2024 End: 09-10-2024 Lab Drop off Deacon Humphreys [facility] Start: 09-10-2024 End: 09-10-2024 ambulatory Deacon Humphreys Facility: [facility] Start: 09-04-2024 End: 09-04-2024 Lab Drop off Deacon Humphreys [facility] Start: 09-04-2024 End: 09-04-2024 ambulatory Deacon Humphreys Facility:[facility] Start: 11-21-2023 End: 11-21-2023 ambulatory Deacon Humphreys Facility: [facility] Start: 07-21-2023 End: 07-21-2023 Office outpatient visit 15 minutes Octaviano Krueger MD Work Phone: Hematology/Oncology Comment on above: Splenomegaly (Primar y Dx); EBV infection Start: 07-04-2023 End: 07-04-2023 ambulatory Kajal Blackmon Other [employer] Other Start: 07-04-2023 Office outpatient vi sit 15 minutes Kajal Blackmon [facility] Start: 06-13-2023 End: 06-13-2023 ambulatory Romero Anna Facility:[facility] Start: 05-19-2023 End: 05-19-2023 ambulatory Romero Anna Other [employer] Other Start: 05-19-2023 Office outpatient ne w 45 minutes Romero Anna [facility] Start: 04-29-2023 Telephone encounter Octaviano ren MD Work Phone: Cancer [facility] Comment on above: Future Appointment Start: 04-28-2023 End: 04-29-2023 ambulatory Octaviano Krueger MD Work Phone: Hematology/Oncology Comment on above: EBV infection (Prima ry Dx); Splenomegaly Start: 04-28-2023 End: 04-29-2023 Telemedicine consultation with patient Octaviano Krueger MD Work Phone: [facility] Start: 02-23-2023 End: 02-23-2023 Patient encounter procedure Romero Chapman PA-C Work Phone: Spine Medicine Comment on above: Chronic bilateral lo w back pain without sciatica (Primary Dx) Start: 02-17-2023 ambulatory Roland Villarreal RT(R) Ra diology Comment on above: Radiology MRI Start: 02-17-2023 Patient encounter procedure Roland Villarreal RT(R) [facility] [place] Start: 02-17-2023 End: 02-17-2023 Subsequent hospital visit by physician Mri [facility] Ernestine (1.5t) Work Phone: Radiology Comment on above: Radiculopathy of lum bar region [M54.16] Start: 01-26-2023 End: 01-26-2023 Patient encounter procedure Romero Chapman PA-C Work Phone: Spine Medicine Comment on above: Radiculopathy of lum bar region (Primary Dx) Start: 11-18-2022 End: 11-19-[address] ZAIN STOUT Facility:[facility] Start: 04-20-2022 End: 04-21-[address] ZAIN STOUT Facility:[facility] Start: 11-30-2021 Encounter for genera l adult medical examination without abnormal findings DR ZAIN STOUT [facility] Start: 11-26-2021 End: 11-27-[address] ZAIN STOUT Facility:[facility] Start: 11-26-2021 End: 11-27-2021 Encounter for general adult medical examination without abnormal findings DR ZAIN STOUT Facility:[facility] Start: 11-25-2021 End: 11-25-[address] ZAIN STOUT Facility:[facility] Procedures Date Procedure Procedure Detail Performing Clinician Start: 02-17-2023 Mri spinal canal lum bar w/o contrast material Romero Chapman PA-C Work Phone: Start: 10-31-2019 Colonoscopy Deacon flores Comment on above: repeat 5 years Screening for malign ant neoplasm of colon Romero Anna Other Plan of Treatment Date Care Activity Detail Author Start: 2034 RSV Vaccine (1 - 1-d ose 75+ series) RSV Vaccine (1 - 1-dose 75+ series) [facility] Start: 10-18-2027 Diabetes Screening Diabetes Screenin g [facility] Start: 10-20-2026 Diabetes Screening Diabetes Screenin g [facility] Start: 07-21-2026 Diabetes Screening Diabetes Screenin g [facility] Start: 04-13-2026 DIABETES SCREEN DIABETES SCREEN [facility] Start: 10-18-2025 End: 10-18-2025 CBC W Auto Differential panel - Blood COMPLETE BLOOD COUNT AND DIFFERENTIAL Lab Routine Splenomegaly Expected: 10/18/2025 (Approximate), Expires: 10/18/2025 [facility] Comment on above: Expected: 10/18/2025 (Approximate), Expires: 10/18/2025 Start: 10-18-2025 End: 10-18-2025 Comprehensive metabolic 2000 panel - Serum or Plasma COMPREHENSIVE METABOLIC PANEL Lab Routine Splenomegaly Expected: 10/18/2025 (Approximate), Expires: 10/18/2025 [facility] Comment on above: Expected: 10/18/2025 (Approximate), Expires: 10/18/2025 Start: 10-10-2025 End: 10-10-2025 Follow-up encounter 10/10/2025 2:20 PM EST Visit (SP) Office Hematology/Oncology [address] [place] [address] Octaviano Krueger MD [address] [place] [address] 1 year follow up Hematology/Oncology Comment on above: 1 year follow up Start: 10-10-2025 End: 10-10-2025 Patient encounter procedure 10/10/2025 2:00 PM EST Office Visit [facility] [address] [place] [address] 1 year follow up [facility] Comment on above: 1 year follow up Start: 10-31-2024 Advance Directive Discussion Advance Directive Discussion [facility] Start: 10-18-2024 End: 10-18-2024 Follow-up encounter 10/18/2024 2:30 PM EST Visit (SP) Office Hematology/Oncology [address] [place] [address] Otcaviano Krueger MD [address] [place] [address] 1 year follow up Hematology/Oncology Comment on above: 1 year follow up Start: 10-18-2024 End: 10-18-2024 Patient encounter procedure 10/18/2024 2:15 PM EST Office Visit [facility] [address] [place] [address] 1 year follow up [facility] Comment on above: 1 year follow up Start: 07-01-2024 Covid-19 Vaccine ( season) Covid-19 Vaccine () [facility] Start: 07-01-2024 Influenza vaccination Influenza Vacc ine (#1) [facility] Start: 02-27-2024 Advance Directive Discussion Advance Directive Discussion [facility] Start: 02-27-2024 Screening for osteoporosis Bone Density Screening [facility] Start: 10-13-2023 End: 07-21-2024 CBC W Auto Differential panel - Blood CBC + DIFF Lab Routine Splenomegaly EBV infection Expected: 10/13/2023 (Approximate), Expires: 07/21/2024 [facility] Work Phone: Comment on above: Expected: 10/13/2023 (Approximate), Expires: 07/21/2024 Start: 10-13-2023 End: 07-21-2024 Comprehensive metabolic 2000 panel - Serum or Plasma COMP METABOLIC PANEL Lab Routine Splenomegaly EBV infection Expected: 10/13/2023 (Approximate), Expires: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
--- OUTSIDE RECORDS SUMMARY | 2025-06-08 08:50 | XMS_ITS | Encounter Summary ---
Author Organization [facility] Address [facility] [place] [address] Care Team Providers Care Wholesale Representative Name Role Phone Miquel Davidson MD Unavailable [phone] Miquel Davidson MD Primary Care Provider [phone] Source Comments In the event this information is protected by the Federal Confidentiality of Alcohol and Drug AbusePatient Records regulations: The Federal rules restrict any use of the information to criminally investigate or prosecute any alcohol or drug abuse patient.[facility] Encounter Details Date Type Department Care Team (Latest Contact Info) Description 04/08/2023 H&P External-Non[facility] Provider, External, PA-C Do not enter address information under generic External Provider. Social History Tobacco Use Types Packs/Day Years [...] N ot on file 01/26/2023 Data from: https://www.neighborhoodatlas.medicine.[facility]/. Last address used for calculation [address] [...] Description 10/10/2025 2:00 PM EST Office Visit [facility] [address] [place] [address] 1 year follow up 10/10/2025 2:20 PM EST Visit (SP) Office Hematology/Oncology [address] [place] [address] Octaviano Walker MD [address] [place] [address] 1 year follow up documented as of this encounter Visit Diagnoses Not on filedocumented in this encounter Care Teams Wholesale Representative Relationship Specialty Start Date End Date Miquel Davidson MD [address] [place] [address] PCP - General Family Medicine 04/08/23 Miquel Davidson MD [address] [place] [address] Referring Family Medicine 04/04/23 documented as of this encounter
--- OUTSIDE RECORDS SUMMARY | 2025-06-08 08:50 | XMS_ITS | Encounter Summary ---
Author Organization [facility] Address [address] [place] [address] Care Team Providers Care Primer Supervisor Name Role Phone Miquel Davidson MD Unavailable [phone] Miquel Davidson MD Primary Care Provider [phone] Source Comments In the event this information is protected by the Federal Confidentiality of Alcohol and Drug AbusePatient Records regulations: The Federal rules restrict any use of the information to criminally investigate or prosecute any alcohol or drug abuse patient.[facility] Encounter Details Date Type Department Care Team (Late st Contact Info) Description 02/15/2023 [place] [address] Provider, [facility] Questionnaire Submission Social History Tobacco Use Types Packs/Day Years [...] N ot on file 01/26/2023 Data from: https://www.neighborhoodatlas.medicine.[facility].edu/. Last address used for calculation [address] [...] Description 10/10/2025 2:00 PM EST Office Visit [facility] [address] [place] [address] [place] [address] 1 year follow up 10/10/2025 2:20 PM EST Visit (SP) Office Hematology/Oncology [address] [place] [address] Octaviano Walker MD [address] [place] [address] 1 year follow up documented as of this encounter Visit Diagnoses Not on filedocumented in this encounter Care Teams Primer Supervisor Relationship Specialty Start Date End Date Miquel Davidson MD [address] [place] [address] PCP - General Family Medicine 04/08/23 Miquel Davidson MD [address] [place] [address] Referring Family Medicine 04/04/23 documented as of this encounter
[2025-06-08 09:10] LABS: Hematocrit 33.7 % (36.0-48.0); Hemoglobin 11.2 g/dL (12.0-16.0); Immature Granulocytes Abs Auto 0.02 10^3/uL (0.00-0.03); Immature Granulocytes Pct Auto 0.5 % (0.0-0.5); Lymphocytes Absolute Auto 1.7 10^3/uL (1.2-3.8); Mean Corpuscular HGB Conc 33.2 g/dL (29.9-35.2); Mean Corpuscular Hemoglobin 28.5 pg (26.7-34.0); Mean Corpuscular Volume 85.8 fL (81.0-99.0); Platelet Count 116 10^3/uL (150-450); Red Blood Count 3.93 10^6/uL (4.20-5.40); White Blood Count 3.9 10^3/uL (4.0-11.0)
[2025-06-08 09:53] LABS: Alanine Aminotransferase 27 U/L (14-59); Albumin Globulin Ratio 1.2; Albumin Level 3.9 g/dL (3.4-5.0); Alkaline Phosphatase 71 U/L (46-116); Anion Gap 10.0; Aspartate Amino Transferase 27 U/L (15-37); Blood Urea Nitrogen 14.0 mg/dL (7.0-18.0); Calcium 9.1 mg/dL (8.5-10.1); Carbon Dioxide 28.6 mmol/L (21.0-32.0); Chloride 107 mmol/L (98-107); Cholesterol 165 mg/dL (<=200); Estimated GFR (African America >60 (>=60 mL/min/1.73m^2); Estimated GFR (Non-African Ame >60 (>=60 mL/min/1.73m^2); Globulin 3.2 g/dL; Glucose 80 mg/dL (74-106); HDL Cholesterol 35 mg/dL (40-60); Potassium 4.6 mmol/L (3.5-5.1); Sodium 141 mmol/L (136-145); TSH W/ REFLEX FT4 2.012 uIU/mL (0.358-3.740); Total Protein 7.1 g/dL (6.4-8.2); Triglycerides 55 mg/dL (<=150); VLDL CHOLESTEROL 11.0 mg/dL
== END 2025-06-08 08:43 | disposition home or self-care (01) ==
PROVIDERS: PCP Nurse Practitioner Family; Visit Provider Nurse Practitioner Family
DX: G47.62 Sleep related leg cramps (principal)
CPT/HCPCS: 36415; 80053; 80061; 82306; 84443; 85025